=== PATIENT | female | born 1965 | race Caucasian/White ===

== ENCOUNTER → 2017-05-26 | Outpatient (CLI) | payer OTHER ==
--- NOTE | 2017-05-26 09:03 | USB ---
Reason for exam: clinical finding. History: Patient has history of high-risk lesion on a previous biopsy at age 49 and is nulliparous. Family history of breast cancer in aunt and breast cancer in mother at age 50. High risk MG pre op needle loc RT of the right breast, August 12, 2015. MG discontinued stereo core RT of the right breast, August 05, 2015. Benign left US cyst aspiration of the left breast, July 31, 2008. Benign left US cyst aspiration of the left breast, June 21, 2007. Indicated problem(s): lump or thickening in the right breast. Physical Findings: Nurse Summary: P right breast lump increased x 2 months (nurse mm). US Breast RT Right breast ultrasound includes all four quadrants, the retroareolar region and axilla. Finding demonstrates a 0.2 x 0.6 x 0.2cm oval, cystic cluster at 10 o'clock and a 0.7 x 0.9 x 0.2cm oval node at palpable at 10 o'clock, probable lymph node. These results were verbally communicated with the patient and result sheet given to the patient on 05/26/17. ASSESSMENT: Probably benign, BI-RAD 3 RECOMMENDATION: Follow-up diagnostic mammogram of both breasts in 2 months. Ultrasound of the right breast in 2 months. Back on schedule for June 2017. Manage patient on a clinical basis.
== END | disposition home or self-care (01) ==
LOC: RADUSWWP 07:57
PROVIDERS: ATTEND Family Medicine
DX: N63 Unspecified lump in breast (principal)

== ENCOUNTER → 2017-05-30 | Outpatient (CLI) | payer OTHER ==
--- NOTE | 2017-05-30 14:30 | CT ---
CT CHEST FOR PULMONARY EMBOLISM. EXAMINATION TYPE: CT angio chest DATE OF EXAM: 05/30/2017 INDICATION: Strong family history of CT DLP: 310.6 mGycm, Automated exposure control for dose reduction was used. CONTRAST: Patient injected with 100 mL of Omnipaque 300. COMPARISON: NONE TECHNIQUE: CT of the chest is performed on a spiral scan at 2 mm thick sections. Study is performed with intravenous contrast timed for evaluation for pulmonary embolism. This will limit additional po rtions of the evaluation. 3-D MIP images reconstructed by the technologist are reviewed on the compu ter in the coronal and sagittal planes. Pre and postcontrast imaging is performed. Three-D reconstruc katlyn images performed separately by the technologist on the [employer] computer are reviewed. FINDINGS: No persistent filling defects are evident to suggest an acute pulmonary embolism. No mediastinal or hilar adenopathy enlarged by CT criteria is evident. The ascending aorta diameter at the level of the main pulmonary artery is 2.6 cm. The main pulmonary artery diameter at the bifur cation is 2.3 cm. Lung windows are clear. Limited CT section through the upper abdomen are unremarkable. IMPRESSIONS: 1. Normal pre and postcontrast CT chest 2. No thoracic aortic aneurysm.
== END | disposition home or self-care (01) ==
LOC: RADCTMAIN 13:09
PROVIDERS: ATTEND Family Medicine
DX: Z09 Encounter for follow-up examination after completed treatment for conditions other than malignant neoplasm (principal); Z82.49 Family history of ischemic heart disease and other diseases of the circulatory system
CPT/HCPCS: 71275; Q9967

== ENCOUNTER → 2017-07-27 | Outpatient (CLI) | payer OTHER ==
--- NOTE | 2017-07-28 08:52 | MM ---
Reason for exam: additional evaluation requested from prior study. Last mammogram was performed 1 year and 1 month ago. History: Patient has history of high-risk lesion on a previous biopsy at age 49 and is nulliparous. Family history of breast cancer in paternal aunt at age 60 and breast cancer in mother at age 50. High risk MG pre op needle loc RT of the right breast, August 12, 2015. MG discontinued stereo core RT of the right breast, August 05, 2015. Benign left US cyst aspiration of the left breast, July 31, 2008. Benign left US cyst aspiration of the left breast, June 21, 2007. Physical Findings: Nurse did not find any significant physical abnormalities on exam. MG Diagnostic Mammo w CAD ARIANA Bilateral CC and MLO view(s) were taken. Prior study comparison: July 09, 2016, bilateral MG screening mammo w CAD. February 03, 2016, right breast MG 3d diag mammo w/cad RT. February 03, 2016, right breast US breast limited RT. The breast tissue is extremely dense which could obscure a lesion on mammography. No suspicious abnormality. These results were verbally communicated with the patient and result sheet given to the patient on 07/27/17. ASSESSMENT: Negative, BI-RAD 1 RECOMMENDATION: Routine screening mammogram of both breasts in 1 year.
--- NOTE | 2017-07-28 08:54 | USB ---
Reason for exam: follow-up at short interval from prior study. History: Patient has history of high-risk lesion on a previous biopsy at age 49 and is nulliparous. Family history of breast cancer in paternal aunt at age 60 and breast cancer in mother at age 50. High risk MG pre op needle loc RT of the right breast, August 12, 2015. MG discontinued stereo core RT of the right breast, August 05, 2015. Benign left US cyst aspiration of the left breast, July 31, 2008. Benign left US cyst aspiration of the left breast, June 21, 2007. US Breast RT Right breast ultrasound includes all four quadrants, the retroareolar region and axilla. Finding demonstrates a 0.7 x 0.2 x 0.6cm oval, solid node at 10 o'clock, benign lymph node and a 0.4 x 0.2 x 0.5cm oval cluster too small to characterize at 10 o'clock, previously 0.4 x 0.2 x 0.6cm. These results were verbally communicated with the patient and result sheet given to the patient on 07/27/17. ASSESSMENT: Probably benign, BI-RAD 3 RECOMMENDATION: Ultrasound of the right breast in 6 months.
== END | disposition home or self-care (01) ==
LOC: RADMAMWWP 08:50
PROVIDERS: ATTEND Family Medicine
DX: N63 Unspecified lump in breast (principal); N64.9 Disorder of breast, unspecified
CPT/HCPCS: 76641; G0204

== ENCOUNTER → 2017-08-15 | Outpatient (CLI) | payer OTHER ==
--- NOTE | 2017-08-15 21:06 | MR ---
EXAMINATION TYPE: MR cervical spine wo con DATE OF EXAM: 08/15/2017 COMPARISON: NONE HISTORY: 51-year-old female with cervicalgia and neck pain TECHNIQUE: Multiplanar, multisequence images of the cervical spine were acquired. Findings: The craniocervical junction abnormality, predental space widening, or prevertebral soft tissue swelli ng. Variable [id number] disc desiccation particularly at C5-C6 and C6/C7 where there is disc space narrowing and disc osteophyte complex formation. Additional endplate Schmorl's nodes at these levels with Modic type I endplate change. Mild scattered facet and uncovertebral joint degenerative change. No suspicious bone marrow replacement. Alignment is maintained. At C2-C3, mild facet arthropathy without canal or foraminal stenosis. At C3-C4, mild facet arthropathy without significant canal or foraminal stenosis. At C4-C5, mild facet arthropathy without significant canal or foraminal stenosis. At C5-C6, there is mild disc osteophyte complex and mild facet and uncovertebral joint arthropathy. C hanges result in mild narrowing of the spinal canal with abutment of the ventral cord but no ar co rd flattening. Mild right-sided neural foraminal stenosis. At C6-C7, there is disc osteophyte complex with contiguous uncovertebral joint degenerative change. A dditional facet degenerative change. Changes mildly narrow the neuroforamina because moderate spinal canal stenosis with prominent abutment and flattening of the ventral cord but no ar cord compressi on. At C7-T1, there is facet degenerative change causing mild bilateral neuroforaminal narrowing. No spin al canal stenosis. No T2-weighted cord signal abnormality. No prevertebral or paravertebral soft tissue abnormality see n. IMPRESSION: 1. Moderate disc/endplate degenerative changes particularly at C5-C6 and C6/C7 where edematous Modic type I endplate change is also present. 2. Additional scattered facet and uncovertebral joint arthropathy. This results in mild neuroforamina l stenosis on the right at C5-C6 and on both sides at C6-C7 and C7-T1. 3. Prominent disc osteophyte complex at C6-C7 causes moderate spinal canal stenosis with abutment and flattening of the ventral cord. No ar cord compression or myelopathic cord signal change.
== END | disposition home or self-care (01) ==
LOC: RADMRIMAIN 17:24
PROVIDERS: ATTEND Family Medicine
DX: M48.02 Spinal stenosis, cervical region (principal); M99.71 Connective tissue and disc stenosis of intervertebral foramina of cervical region; M47.812 Spondylosis without myelopathy or radiculopathy, cervical region; M25.78 Osteophyte, vertebrae; M46.82 Other specified inflammatory spondylopathies, cervical region
CPT/HCPCS: 72141

== ENCOUNTER → 2017-08-30 | Outpatient (CLI) | payer OTHER ==
--- NOTE | 2017-08-31 07:31 | WWHP ---
[facility] - HISTORY AND PHYSICAL DATE OF SERVICE: 08/30/2017 CHIEF COMPLAINT: The patient is here for her routine gynecologic exam. HPI: This is a 51-year-old G0 with an LMP of 06/30/2017. The patient states she has never been sexually active. She states her periods have become more irregular about every 2 to 3 months. They are typically lasting anywhere between 2 to 6 days. She does have occasional hot flashes which are not very severe. She states she has noticed a pelvic pressure greater on the right side during the last 2 to 3 weeks which she notices most of the time. She states it seems to start on the right side and goes across the pelvic area. She does believe that drinking soda pop does seem to help, but she does not want to drink lots of pop. She describes it as a dull ache and can be as much as 4 to 5/10 on the pain scale. She is otherwise without gynecologic complaints. PAST MEDICAL HISTORY: Seizure disorder since childhood, but she has been seizure-free since about 1983, chronic neck problems. MEDICATIONS: 1. Phenobarbital 65 mg b.i.d. 2. Vitamin D3 supplement daily. 3. Glucosamine supplement daily. chronic neck problems. ALLERGIES: No known drug allergies. PAST SURGICAL HISTORY: Right breast biopsy in 2014, which was benign. 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 She has never been sexually active and has no history of STDs. SOCIAL HISTORY: She denies tobacco, alcohol, and drug use. 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 FAMILY HISTORY: Mother had breast cancer and father had prostate cancer. Both parents have hypertension and a paternal grandmother had ovarian cancer. REVIEW OF SYSTEMS: Weight has been stable. She denies respiratory, cardiac or GI problems. PHYSICAL EXAM: Blood pressure 108/69, height 5 feet 7 inches, weight 134 pounds, temperature 97.9, pulse 48. This is a well-developed, well-nourished, white female, who is alert and oriented x3, in no acute distress. HEENT is within normal limits. NECK: Supple without mass or thyromegaly. CHEST AND LUNGS: Clear to auscultation. HEART: Regular rate and rhythm. BREASTS: The right breast is consistent with a previous breast biopsy at approximately the 10 o'clock position. At the very lateral aspect of the breast at the 10 o'clock position, there is a palpable pea-size lump which has been followed conservatively. This is smooth and mobile, measuring approximately 4 to 5 mm in size. This is nontender. There are no other palpable breast masses or tenderness. Axillary exam is negative for adenopathy. Back negative for CVA tenderness. ABDOMEN: Soft, nontender, without palpable masses. PELVIC EXAM: External genitalia appears normal. Cervix and vagina appear normal. There is no unusual discharge. There is no cervical motion tenderness. The uterus is mid-position, nongravid size and nontender. There are no palpable adnexal masses or tenderness. Rectovaginal exam is negative for mass or tenderness and is negative for occult blood. EXTREMITIES: Nontender. IMPRESSION: 1. A 51-year-old female with normal gynecologic exam. 2. A 3-week history of right pelvic pressure without any significant physical findings on exam. PLAN: 1. Pap smear was deferred since she had a normal 1 last year. 2. Self-breast examination was discussed. 3. Mammogram and right breast ultrasound were performed on 07/27/2017. The findings were benign, but a right breast ultrasound was recommended in 6 months. An order slip was given to the patient for this. 4. The patient will be scheduled for a pelvic ultrasound to further evaluate the pelvic pressure and discomfort that she has been experiencing. 5. I have recommended screening colonoscopy and she states this is already scheduled for later this month and Dr. Pan will be doing it. 6. Osteoporosis prevention was discussed. 7. She will return in 1 year. MMODL / IJN: [id number] /
== END | disposition home or self-care (01) ==
LOC: WWCWWP 09:28
PROVIDERS: ATTEND Obstetrics & Gynecology
DX: Z01.419 Encounter for gynecological examination (general) (routine) without abnormal findings (principal)

== ENCOUNTER → 2017-08-31 | Outpatient (CLI) | payer OTHER ==
--- NOTE | 2017-08-31 09:18 | US ---
EXAMINATION TYPE: US pelvic complete DATE OF EXAM: 08/31/2017 COMPARISON: NONE CLINICAL HISTORY: R10.2 PELVIC PAIN. Pt states right adnexal fullness TECHNIQUE: Transvaginal (TV) and Transabdominal (TA), due to pt time restraints, pt did not want to wait to fill bladder, TV supplemented Date of LMP: Jun 2017 EXAM MEASUREMENTS: Uterus: 7.0 x 3.4 x 4.1 cm Endometrial Stripe: 0.4 cm Right Ovary: 2.6 x 1.7 x 1.9 cm Left Ovary: 3.1 x 3.1 x 2.1 cm 1. Uterus: Anteverted Heterogeneous with numerous hyperechoic foci throughout the junctional zone 2. Endometrium: wnl 3. Right Ovary: wnl 4. Left Ovary: Dominant follicle= 1.5 x 1.2 x 1.6 cm 5. Bilateral Adnexa: wnl 6. Posterior cul-de-sac: Many peristalsing bowel loops visualized IMPRESSION: 1. Right ovary is unremarkable. 2. Heterogenous myometrium which could represent adenomyosis as there are numerous hyperechoic foci n ear the junctional zone. Enhanced pelvic MR could be performed for further evaluation. 3. Dominant left ovarian follicle.
== END | disposition home or self-care (01) ==
LOC: RADUSWWP 08:18
PROVIDERS: ATTEND Obstetrics & Gynecology
DX: R10.2 Pelvic and perineal pain (principal)
CPT/HCPCS: 76830; 76856

== ENCOUNTER 2017-12-21 09:12 | Emergency (ER) | payer OTHER ==
--- NOTE | 2017-12-21 09:52 | ED ---
General Adult HPI - General Chief complaint: Head Injury Stated complaint: [facility] - HEAD INJURY Time Seen by Provider: 12/21/17 09:46 Source: patient, RN notes reviewed Mode of arrival: ambulatory Limitations: no limitations - History of Present Illness Initial comments: 52-year-old female presents to the emergency department with a chief complaint of head injury. 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 She states she has a little bit of a goose egg. Her work made her come in to be evaluated. She denies any headache any loss of consciousness. She states at the time of the incident she had a low nausea but there is no vomiting. She denies any high fevers any neck pain or any other injury from the incident. She is otherwise she feels fine. She's been acting normally. Patient has no other complaints. Patient denies any recent fever, chills, shortness of breath, chest pain, back pain, abdominal pain, vomiting, numbness or tingling, dysuria or hematuria, constipation or diarrhea, headaches, visual changes, or any other current symptoms. - Related Data Home Medications Medication Instructions Recorded Confirmed PHENobarbital [Phenobarbital] 64.8 mg PO BID 08/11/15 12/21/17 Cholecalciferol [Vitamin D3] 1,000 unit PO DAILY 09/21/17 12/21/17 Glucosam/Robbi-Msm1/C/Abelino/Bosw 1 tab PO DAILY 09/21/17 12/21/17 [Glucosamine-Chondroitin Tablet] Allergies Allergy/AdvReac Type Severity Reaction Status Date / Time No Known Allergies Allergy Verified 12/21/17 09:54 Review of Systems ROS Statement: Those systems with pertinent positive or pertinent negative responses have been documented in the HPI. ROS Other: All systems not noted in ROS Statement are negative. Past Medical History Past Medical History: Seizure Disorder Additional Past Medical History / Comment(s): "SLEEP SEIZURES" LAST SEIZURE 1983, History of Any Multi-Drug Resistant Organisms: None Reported Past Surgical History: Breast Surgery Additional Past Surgical History / Comment(s): RT BREAST BX BENIGN Past Anesthesia/Blood Transfusion Reactions: No Reported Reaction Additional Past Anesthesia/Blood Transfusion Reaction / Comment(s): NEVER HAS HAD GENERAL ANESTHESIA Past Psychological History: No Psychological Hx Reported Smoking Status: Never smoker Past Alcohol Use History: None Reported Past Drug Use History: None Reported - Past Family History Mother Family Medical History: Cancer Additional Family Medical History / Comment(s): BREAST AT AGE 50 LIVING AT 85 Father Family Medical History: Cancer Additional Family Medical History / Comment(s): PROSTATE. FATHER'S MOTHER AND SISTER BREAST CA AND OVARIAN CA. General Exam - General Exam Comments Initial Comments: General: The patient is awake and alert, in no distress, and does not appear acutely ill. Head: Patient does appear to have an occipital hematoma Eye: Pupils are equal, round and reactive to light, extra-ocular movements are intact; there is normal conjunctiva bilaterally. No signs of icterus. Ears, nose, mouth and throat: There are moist mucous membranes and no oral lesions. Neck: The neck is supple, there is no tenderness. Cardiovascular: There is a regular rate and rhythm. No murmur, rub or gallop is appreciated. Respiratory: Lungs are clear to auscultation, respirations are non-labored, breath sounds are equal. No wheezes, stridor, rales, or rhonchi. Back: There is no tenderness to palpation in the midline. There is no obvious deformity. No rashes noted. Musculoskeletal: Normal ROM, no tenderness, There is no pedal edema. There is no calf tenderness or swelling. Sensation intact. Pulses equal bilaterally 2+. Neurological: CN II-XII intact, There are no obvious motor or sensory deficits. Coordination appears grossly intact. Speech is normal. Skin: Skin is warm and dry and no rashes or lesions are noted. Psychiatric: Cooperative, appropriate mood & affect, normal judgment. Limitations: no limitations Course Vital Signs 12/21/17 09:43 Temperature 97.8 F Pulse Rate 60 Respiratory 20 Rate Blood Pressure 125/67 O2 Sat by Pulse 99 Oximetry Medical Decision Making - Medical Decision Making 52-year-old female presents to the emergency 5 chief complaint of a occipital hematoma. This time CAT scan is negative per a verbal report. Patient is asymptomatic. This time we discussed close follow-up we discussed return parameters we discussed what to watch while questions. Patient stated that she understood and she is in agreement with this plan. All questions have been answered. This time she will be discharged. - Radiology Data Radiology results: image reviewed Interpreted by me: Verbal report was given which is negative. Disposition Clinical Impression: Hematoma of occipital surface of head Disposition: HOME SELF-CARE Condition: Stable Instructions: Head Injury (ED) Additional Instructions: Please use medication as discussed. Please follow up with family doctor if symptoms have not improved over the next two days. Please return to the emergency room if your symptoms increase or worsen or for any other concerns. Referrals: Kevin Waggoner MD [Primary Care Provider] - 1-2 days Time of Disposition: 12:07
[2017-12-21 12:23] VITALS: BP 102/61; PULSE 57; RESP 16; TEMP 97.9
--- NOTE | 2017-12-21 12:54 | CT ---
EXAMINATION TYPE: CT brain wo con DATE OF EXAM: 12/21/2017 COMPARISON: NONE HISTORY: Head Injury with headache. CT DLP: 1054.2 mGycm. Automated Exposure Control for Dose Reduction was Utilized. TECHNIQUE: CT scan of the head is performed without contrast. FINDINGS: There is no acute intracranial hemorrhage, mass effect, or midline shift identified. The ventricles and sulci are within normal limits in size. Mcdermott-white matter differentiation is preserve d. The globes are intact and the visualized sinuses are clear. The calvarium is intact. IMPRESSION: No acute intracranial hemorrhage, mass effect, or midline shift is seen.
== END 2017-12-21 12:39 | disposition home or self-care (01) ==
LOC: EC 09:12
DX: S00.03XA Contusion of scalp, initial encounter (principal); G40.909 Epilepsy, unspecified, not intractable, without status epilepticus; Z79.899 Other long term (current) drug therapy; W22.8XXA Striking against or struck by other objects, initial encounter; Y99.0 Civilian activity done for income or pay; Y93.89 Activity, other specified; Y92.811 Bus as the place of occurrence of the external cause
CPT/HCPCS: 70450; 99283

== ENCOUNTER → 2018-02-07 | Outpatient (CLI) | payer OTHER ==
--- NOTE | 2018-02-07 10:35 | USB ---
Reason for exam: follow-up at short interval from prior study. History: Patient has history of high-risk lesion on a previous biopsy at age 49 and is nulliparous. Family history of breast cancer in paternal aunt at age 60 and breast cancer in mother at age 50. High risk MG pre op needle loc RT of the right breast, August 12, 2015. MG discontinued stereo core RT of the right breast, August 05, 2015. Benign left US cyst aspiration of the left breast, July 31, 2008. Benign left US cyst aspiration of the left breast, June 21, 2007. Physical Findings: Nurse Summary: axilla nodule 1cm moves (nurse dw). US Breast RT Right breast ultrasound includes all four quadrants, the retroareolar region and axilla. Finding demonstrates a 0.7 x 0.6 x 0.2cm oval, vascular, stable lesion at 10 o'clock. These results were verbally communicated with the patient and result sheet given to the patient on 02/07/18. ASSESSMENT: Benign, BI-RAD 2 RECOMMENDATION: Routine screening mammogram of both breasts in 6 months. Back on schedule.
== END | disposition home or self-care (01) ==
LOC: RADUSWWP 09:02
PROVIDERS: ATTEND Obstetrics & Gynecology
DX: N63.10 Unspecified lump in the right breast, unspecified quadrant (principal)

== ENCOUNTER → 2018-09-19 | Outpatient (CLI) | payer OTHER ==
[2018-09-19 11:32] VITALS: BP 109/72; PULSE 53; TEMP 97.8; BMI 20.2
--- NOTE | 2018-09-19 12:33 | P.HPOB ---
History of Present Illness H&P Date: 09/19/18 Chief Complaint: The patient is here for her routine gynecologic exam. This is a 52-year-old G0 with an LMP of 01/11/2018. The patient states her menstrual periods have been spacing out even more. Last year they were typically every one to 3 months and this year she has gone 8 months without a menstrual period. She has intermittent hot flashes during the past year. She is complaining of lower abdominal and pelvic cramping and 18 during the past 4 months. She notices this on both sides and rates hit at about a 5 out of 10. She denies any fever. Review of Systems The patient's weight has been stable over the last year. She denies respiratory , cardiac, or G.I. problems. Past Medical History Past Medical History: Seizure Disorder Additional Past Medical History / Comment(s): "SLEEP SEIZURES" LAST SEIZURE 1983. 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 She has not been sexually active. 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 - Past Family History Mother Family Medical History: AFIB, Cancer (Breast) Additional Family Medical History / Comment(s): BREAST AT AGE 50 LIVING AT 85. Maternal aunt also had breast cancer. Father Family Medical History: Cancer (Prostate), Renal Disease Additional Family Medical History / Comment(s): PROSTATE. Paternal grandmother had OVARIAN CA. Medications and Allergies Home Medications Medication Instructions Recorded Confirmed Type PHENobarbital [Phenobarbital] 64.8 mg PO BID 08/11/15 09/19/18 History Cholecalciferol [Vitamin D3] 1,000 unit PO DAILY 09/21/17 12/21/17 History Glucosam/Robbi-Msm1/C/Abelino/Bosw 1 tab PO DAILY 09/21/17 09/19/18 History [Glucosamine-Chondroitin Tablet] Multivitamin [Multivitamins Adult PO DAILY 09/19/18 History Gummies] Allergies Allergy/AdvReac Type Severity Reaction Status Date / Time No Known Allergies Allergy Verified 09/19/18 11:28 Exam Vital Signs Temp Pulse BP 09/19/18 11:28 97.8 F 53 L 109/72 Intake and Output 09/18/18 09/19/18 09/19/18 22:59 06:59 14:59 Other: Weight 60.328 kg Height 5'8", weight 133 pounds, BMI 20.2. This is a well-developed well-nourished white female who is alert and oriented times 3 in no acute distress. HEENT: Within normal limits. NECK: Supple without mass or thyromegaly. CHEST AND LUNGS: Clear to auscultation. HEART: Regular rate and rhythm. BREASTS: Are without mass or discharge. AXILLARY EXAM: Negative for adenopathy. BACK: Negative for CVA tenderness. ABDOMEN: Soft, minimal bilateral lower quadrant tenderness without rebound. There are 2+ bowel sounds without distention. There are no palpable masses. PELVIC EXAM: Normal external genitalia. Cervix and vagina appear normal. There is no unusual discharge. There is no cervical motion tenderness. There is no evidence of prolapse. The uterus is midposition, nongravid size and nontender. There are no palpable adnexal masses. There is minimal bilateral pelvic tenderness without palpable masses. The uterus is nontender.. RECTAL EXAM: rectovaginal exam is negative for mass or tenderness and is negative for occult blood. EXTREMITIES: Nontender. IMPRESSION: 1. 52-year-old perimenopausal female with oligomenorrhea and vasomotor symptoms. 2. Four-month history of lower abdominal and pelvic pain described as crampy and achy with mild lower abdominal and pelvic tenderness. Differential diagnosis will include intestinal and bowel cramping and possible ovarian mass. 3. Family history of ovarian cancer in her grandmother and family history of breast cancer in her mother and aunt. PLAN: 1. Pap smear was performed. 2. Self breast awareness was discussed with the patient. 3. Screening mammogram was recently done on 07/28/2018 and was benign. This will be repeated in one year. 4. Pelvic ultrasound will be scheduled. 5. Osteoporosis prevention was discussed. 6. She will return one year.
== END | disposition home or self-care (01) ==
LOC: WWCWWP 11:05
PROVIDERS: ATTEND Obstetrics & Gynecology
DX: Z53.9 Procedure and treatment not carried out, unspecified reason (principal)

== ENCOUNTER → 2018-09-25 | Outpatient (CLI) | payer OTHER ==
--- NOTE | 2018-09-26 07:27 | US ---
EXAMINATION TYPE: US pelvis complete transvag DATE OF EXAM: 09/25/2018 COMPARISON: NONE CLINICAL HISTORY: R10.2 Pelvic pain,R14.0 Abdominal bloating. TECHNIQUE: TA/TV. Transabdominal sonographic images of the pelvis were acquired. Transvaginal sono graphic images were medically necessary to better assess the following anatomy: uterus and ovary Date of LMP: Dec 2017 EXAM MEASUREMENTS: Uterus: 6.5 x 3.6 x 3.3 cm Endometrial Stripe: 0.4 cm Right Ovary: 2.0 x 1.5 x 1.2 cm Left Ovary: not seen 1. Uterus: Anteverted slightly heterogeneous with mild fluid seen within LEORA 2. Endometrium: wnl 3. Right Ovary: wnl, follicle under 1cm seen 4. Left Ovary: not seen due to bowel gas 5. Bilateral Adnexa: wnl 6. Posterior cul-de-sac: wnl IMPRESSION: 1. Small memory ovarian follicles less than 1 cm. No rate complex ovarian cysts. The left ovary was n onvisualized due to overlying bowel. 2. Endometrial thickness is within normal limits for the patient's age, however a small amount of flu id is seen within the lower uterine segment. Correlate with any vaginal bleeding.
--- NOTE | 2018-09-26 17:07 | P.PN ---
Progress Note - Text Progress Note Date: 09/26/18 OUTPATIENT FOLLOW-UP NOTE TEST(S)/RESULTS: pelvic ultrasound done on 09/25/2018 shows no evidence of an ovarian mass. A small amount of fluid was noted in the lower uterine segment. The endometrial thickness was within normal limits. METHOD OF NOTIFICATION: the patient was notified by phone. PATIENT COMMENTS: the patient's LMP was in December of this year. She is considered perimenopausal. DIAGNOSIS: small amount of fluid in the lower uterine segment. This is probably consistent with being perimenopausal. No evidence of an ovarian mass. DISCUSSION: PLAN: repeat pelvic ultrasound in 6 months. The order slip will be sent to the patient.
== END | disposition home or self-care (01) ==
LOC: RADUSWWP 15:48
PROVIDERS: ATTEND Obstetrics & Gynecology
DX: N85.8 Other specified noninflammatory disorders of uterus (principal); R10.2 Pelvic and perineal pain; R14.0 Abdominal distension (gaseous)
CPT/HCPCS: 76830; 76856

== ENCOUNTER → 2019-03-08 | Outpatient (CLI) | payer OTHER ==
--- NOTE | 2019-03-08 10:25 | US ---
EXAMINATION TYPE: US pelvis complete transvag DATE OF EXAM: 03/08/2019 COMPARISON: 09/25/2018 CLINICAL HISTORY: R93.8 Abnormal findings on diagnostic imaging of. Follow up fluid seen in endometri al cavity. No spotting. Patient states having pelvic pressure. TECHNIQUE: Transvaginal (TV) and Transabdominal (TA) . Transabdominal sonographic images of the pel vis were acquired. Transvaginal sonographic images were medically necessary to better assess the fol lowing anatomy: Ovaries and Endometrium Date of LMP: December 2017, G0 EXAM MEASUREMENTS: Uterus: 7.1 x 3.2 x 3.3 cm Endometrial Stripe: 1.0 cm Right Ovary: 2.1 x 1.3 x 1.2 cm Left Ovary: 2.6 x 1.5 x 1.0 cm 1. Uterus: Anteverted Appears heterogenous, no prominent masses or lesions visualized 2. Endometrium: Borders appear difficult to visualize, possibly thickened 3. Right Ovary: wnl 4. Left Ovary: cystic appearing lesion - 1.2 x 0.7 x 0.7 cm 5. Bilateral Adnexa: free fluid seen adjacent to left ovary 6. Posterior cul-de-sac: no free fluid Incidental finding- Debris visualized in bladder IMPRESSION: 1. Uterus is slightly heterogeneous which is a nonspecific finding. Endometrial borders are difficult to visualize and the endometrium measures approximately 1 cm which may be thickened. Correlate for e ndometrial pathology. 2. There is a left ovarian simple cyst measuring 1.2 cm. 3. There is a small amount of free fluid in the left adnexa. 4. Incidental note is made of debris within the bladder. Correlate with urinalysis for possible urina ry tract infection, otherwise consider mucosal lesion
== END | disposition home or self-care (01) ==
LOC: RADUSWWP 09:13
PROVIDERS: ATTEND Obstetrics & Gynecology
DX: N83.202 Unspecified ovarian cyst, left side (principal)
CPT/HCPCS: 76830; 76856

== ENCOUNTER → 2019-03-21 | Day surgery (SDC) | payer OTHER ==
[2019-03-21 12:58] VITALS: BP 112/74; PULSE 51; RESP 16; TEMP 97.8; BMI 19.8
--- NOTE | 2019-03-21 14:20 | P.PCN ---
Date of Procedure: 03/21/19 Preoperative Diagnosis: Postmenopausal endometrial thickening Postoperative Diagnosis: Postmenopausal endometrial thickening Procedure(s) Performed: Endometrial biopsy (attempted) Anesthesia: none Surgeon: Moses Driscoll Estimated Blood Loss (ml): 0 Pathology: none sent Condition: stable Disposition: same day Indications for Procedure: This was a 53-year-old G0 with an LMP of December 2017. The patient had a pelvic ultrasound approximately 6 months ago because of pelvic discomfort. Small individual fluid was noted at that time. Pelvic ultrasound was repeated on 03/08/2019 which showed a slightly heterogeneous uterus with ill-defined endometrial borders with the endometrium measuring approximately 1 cm which is felt to be possibly thickened. Operative Findings: The was noncredit size. There were no palpable adnexal masses or tenderness. The cervix appears nulliparous and was stenotic and the endometrial biopsy instrument could not pass through the cervix. Description of Procedure: The endometrial biopsy procedure was described to the patient. All of her questions were answered. Cytotec was inserted intravaginally approximately 4 hours prior to the procedure by the patient. The patient was placed in the li thotomy position. Bimanual examination was performed. The uterus is mid- positioned and is gravid size. The speculum was inserted and the cervix and vagina were prepped with betadine solution. The anterior lip of the cervix was grasped with an Allys Clamp. The 3mm endometrial biopsy curette placed within the cervix but could not penetrate beyond 2 cm because of cervical stenosis. The Allys clamp was placed on the posterior cervix to see if this would allow the biopsy instrument to penetrate. Several attempts were made but were unsuccessful. The decision was made to abort the procedure. The patient tolerated the procedure well. There were no complications. The post procedure vitals are as follows: blood pressure 118/77. pulse 52. Post procedure instructions were given to the patient. We discussed the option of repeating the pelvic ultrasound in 6 months or referral for endometrial sampling and possible D&C. The patient is requesting a referral for possible D&C. A referral will be made.
--- NOTE | 2019-03-21 14:25 | P.PN ---
Progress Note - Text Progress Note Date: 03/21/19 OUTPATIENT FOLLOW-UP NOTE TEST(S)/RESULTS: urine testing from 03/14/2019 included a urine culture which was negative. METHOD OF NOTIFICATION: patient was notified by phone. PATIENT COMMENTS: DIAGNOSIS: negative urine culture. DISCUSSION: also, see today's endometrial biopsy attempt procedure note. PLAN: the patient will be referred for endometrial sampling, possible D&C.
== END ==
LOC: WWCWWP 11:32
PROVIDERS: ATTEND Obstetrics & Gynecology
DX: Z53.9 Procedure and treatment not carried out, unspecified reason (principal)

== ENCOUNTER → 2019-10-18 | Outpatient (CLI) | payer OTHER ==
--- NOTE | 2019-10-22 10:33 | MM ---
Reason for exam: screening (asymptomatic). Last mammogram was performed 1 year and 3 months ago. History: Patient has history of high-risk lesion on a previous biopsy at age 49 and is nulliparous. Family history of breast cancer in paternal aunt at age 60 and breast cancer in mother at age 50. High risk MG pre op needle loc RT of the right breast, August 12, 2015. MG discontinued stereo core RT of the right breast, August 05, 2015. Benign left US cyst aspiration of the left breast, July 31, 2008. Benign left US cyst aspiration of the left breast, June 21, 2007. Physical Findings: A clinical breast exam by your physician is recommended on an annual basis and results should be correlated with mammographic findings. MG 3D Screening Mammo W/Cad Bilateral CC and MLO view(s) were taken. Prior study comparison: July 28, 2018, bilateral MG screening mammo w CAD. July 27, 2017, bilateral MG diagnostic mammo w CAD [facility]ANA. The breast tissue is extremely dense which could obscure a lesion on mammography. No suspicious abnormality. Post surgical change on the right. Left biopsy marker noted. ASSESSMENT: Benign, BI-RAD 2 RECOMMENDATION: Routine screening mammogram of both breasts in 1 year.
== END | disposition home or self-care (01) ==
LOC: RADMAMWWP 12:59
PROVIDERS: ATTEND Obstetrics & Gynecology
DX: Z12.31 Encounter for screening mammogram for malignant neoplasm of breast (principal); Z80.3 Family history of malignant neoplasm of breast
CPT/HCPCS: 77063; 77067

== ENCOUNTER → 2020-03-20 | Outpatient (CLI) | payer OTHER ==
--- NOTE | 2020-03-20 11:28 | US ---
EXAMINATION TYPE: US transvaginal DATE OF EXAM: 03/20/2020 COMPARISON: Pelvic ultrasound March 08, 2019 CLINICAL HISTORY: R10.2 pelvic pain. TECHNIQUE: Transvaginal (TV). Date of LMP: 2017 EXAM MEASUREMENTS: Uterus: 5.8 x 2.6 x 3.3 cm Endometrial Stripe: 0.3 cm Right Ovary: 1.6 x 1.1 x 0.9 cm Left Ovary: 2.0 x 1.1 x 1.2 cm 1. Uterus: Anteverted wnl 2. Endometrium: wnl 3. Right Ovary: wnl 4. Left Ovary: Scattered follicles 5. Bilateral Adnexa: wnl 6. Posterior cul-de-sac: wnl IMPRESSION: Unremarkable transvaginal pelvic ultrasound. No suspicious adnexal masses noted on images saved.
== END | disposition home or self-care (01) ==
LOC: RADUSWWP 10:39
PROVIDERS: ATTEND Family Medicine
DX: R10.2 Pelvic and perineal pain (principal)
CPT/HCPCS: 76830

== ENCOUNTER → 2020-06-14 | Outpatient (CLI) | payer OTHER ==
--- NOTE | 2020-06-15 12:39 | CT ---
EXAMINATION TYPE: CT sinus wo con DATE OF EXAM: 06/14/2020 COMPARISON: NONE HISTORY: Chronic sinusitis per order. Headaches, nasal drainage for patient. CT DLP: 693 mGycm. Automated Exposure Control for Dose Reduction was Utilized. TECHNIQUE: CT scan of the sinuses is performed without contrast, axial images are obtained, coronal r eformatted images are also reviewed. FINDINGS: Minimal mucosal thickening in the inferior aspect right maxillary sinus. Mild to minimal mu cosal thickening throughout the anterior ethmoid sinuses bilaterally. Remainder paranasal sinuses katherine ar without suspicious opacification or air-fluid levels. The ostiomeatal complex is patent bilateral ly on coronal image 17. Nasal septum deviated to left of midline. Visualized portion of mastoid air cells show no abnormal opacification. The globes are intact bilate rally. Visualized brain parenchyma unremarkable. IMPRESSION: No acute sinusitis currently. Mild chronic paranasal sinus disease noted.
== END | disposition home or self-care (01) ==
LOC: RADCTMAIN 07:01
PROVIDERS: ATTEND Otolaryngology
DX: J32.9 Chronic sinusitis, unspecified (principal)
CPT/HCPCS: 70486

== ENCOUNTER 2020-07-30 12:31 | Emergency (ER) | payer OTHER ==
--- NOTE | 2020-07-30 12:16 | CT ---
EXAMINATION TYPE: CT orbits wo con, CT sinus wo con DATE OF EXAM: 07/30/2020 COMPARISON: CT sinus 06/14/2020 HISTORY: Postprocedural sinus surgery, nosebleed and left eye pressure CT DLP: Included in sinus study (accession [id number]), 595 (accession [id number]) mGycm Automated exposure control for dose reduction was used. Helical imaging through the orbits and sinus wo contrast. FINDINGS: There is abnormal increased attenuation involving the left maxillary sinus, minimal air present withi n the left maxillary sinus, right maxillary sinus and ostiomeatal unit are patent. Left ostiomeatal u nit shows abnormal soft tissue which extends into the region of the middle turbinate, there is inflam matory change in the ethmoid air cells and left frontal sinus. Left ostiomeatal unit is not well-defi jahaira, small bone fragment may be present at this level. Nasal septal deviation towards the left is not ed. Orbits are intact. Orbits show symmetric appearance. There is no evident fracture. Globes are intact. IMPRESSION: FINDINGS MAY REPRESENT POSTOP INFLAMMATORY CHANGE, ASSOCIATED HEMORRHAGE additional findings above.
[2020-07-30 12:49] VITALS: BP 129/85; PULSE 73; RESP 18; TEMP 98.5
--- NOTE | 2020-07-30 13:58 | ED ---
Recheck HPI - General Chief Complaint: Recheck/Abnormal Lab/Rx Stated Complaint: abn CT Source: patient Mode of arrival: ambulatory Limitations: no limitations - History of Present Illness Initial Comments: Patient is a 54-year-old female presenting to the emergency department from [place]. Patient had a balloon sinus plasty on 07/18/2020 and has been having sinus pressure since then. She saw ENT in [place], Dr. Nascimento for the procedure. Since procedure she has not been blowing her nose secondary to precautions, she is having black colored blood clot come from her nose when she does blow slightly. She is not having any active bleeding. She states her PCP ordered another CT of the sinuses today and after she had a performed she was told to come down to the ER. She does not have another follow-up with her ENT until the , in 13 days. Patient denies any fever, chills, nausea, vomiting. She states she's been having increased sinus pressure, sinus headaches. She is no further complaints at this time. Upon arrival to the ER, her vital signs are stable. - Related Data Home Medications Medication Instructions Recorded Confirmed PHENobarbital [Phenobarbital] 64.8 mg PO BID 08/11/15 03/21/19 Cholecalciferol [Vitamin D3] 1,000 unit PO DAILY 09/21/17 03/21/19 Glucosam/Robbi-Msm1/C/Abelino/Bosw 1 tab PO DAILY 09/21/17 03/21/19 [Glucosamine-Chondroitin Tablet] Multivitamin [Multivitamins Adult PO DAILY 09/19/18 Gummies] Previous Rx's Medication Instructions Recorded Misoprostol [Cytotec] 200 mcg VAGINAL ONCE #2 tablet 03/13/19 methylPREDNISolone [Medrol Dose 4 mg PO DIRECTED #1 pack 07/30/20 Pack] Allergies Allergy/AdvReac Type Severity Reaction Status Date / Time No Known Allergies Allergy Verified 07/30/20 12:49 Review of Systems ROS Statement: Those systems with pertinent positive or pertinent negative responses have been documented in the HPI. ROS Other: All systems not noted in ROS Statement are negative. Past Medical History Past Medical History: Seizure Disorder Additional Past Medical History / Comment(s): "SLEEP SEIZURES" LAST SEIZURE 1983. 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 She has not been sexually active. History of Any Multi-Drug Resistant Organisms: None Reported Past Surgical History: Breast Surgery Additional Past Surgical History / Comment(s): RT BREAST BX BENIGN Past Anesthesia/Blood Transfusion Reactions: No Reported Reaction Additional Past Anesthesia/Blood Transfusion Reaction / Comment(s): NEVER HAS HAD GENERAL ANESTHESIA Past Psychological History: No Psychological Hx Reported Smoking Status: Never smoker Past Alcohol Use History: None Reported Past Drug Use History: None Reported - Past Family History Mother Family Medical History: AFIB, Cancer Additional Family Medical History / Comment(s): BREAST AT AGE 50 LIVING AT 85. Maternal aunt also had breast cancer. Father Family Medical History: Cancer, Renal Disease Additional Family Medical History / Comment(s): PROSTATE. Paternal grandmother had OVARIAN CA. General Exam - General Exam Comments Initial Comments: GENERAL: Patient is well-developed and well-nourished. Patient is nontoxic and in no acute distress. HEAD: Atraumatic, normocephalic. EYES: Pupils equal round and reactive to light, extraocular movements intact, sclera anicteric, conjunctiva are normal. Eyelids were unremarkable. ENT: TMs normal, nares patent, oropharynx clear without exudates. Moist mucous membranes. No active nasal bleeding. No visualized blood clots. NECK: Normal range of motion, supple without lymphadenopathy or JVD. LUNGS: Unlabored respirations. Breath sounds clear to auscultation bilaterally and eq ual. No wheezes rales or rhonchi. HEART: Regular rate and rhythm without murmurs, rubs or gallops. ABDOMEN: Soft, nontender, normoactive bowel sounds. No guarding, no rebound. No masses appreciated. : Deferred MUSCULOSKELETAL: Normal extremities with adequate strength and normal range of motion, no pitting or edema. No clubbing or cyanosis. NEUROLOGICAL: Patient is alert and oriented x 3. Motor and sensory are also intact. Cranial nerves II through XII grossly intact. Symmetrical smile. Normal speech, normal gait. PSYCH: Normal mood, normal affect. SKIN: Warm, Dry, normal turgor, no rashes or lesions noted. Limitations: no limitations Course Vital Signs 07/30/20 12:44 Temperature 98.5 F Pulse Rate 73 Respiratory 18 Rate Blood Pressure 129/85 O2 Sat by Pulse 100 Oximetry Medical Decision Making - Medical Decision Making Patient is a 54-year-old female here for sinus pressure and pain, was sent from CT. She had sinus procedure done by Dr. Duron in [place] approximately 2 weeks ago. Her vital signs are stable, her exam does not reveal any acute findings, no active nasal bleeding. CT of the sinuses and orbits revealed postoperative inflammatory changes, possible associated hemorrhage. I did contact her ENT, Dr. Nascimento, who stated she is stable for discharge. ENT will see her in the office in a few days. I did fax over her CT results to him as requested. He did recommend a steroid Dosepak for inflammatory changes. She may also continue with her already prescribed antibiotic. Patient is agreement with this plan of care, she stable for discharge. Return parameters were discussed with the patient she verbalized understanding. Case discussed with Dr. Lake. Disposition Clinical Impression: Sinus pressure Disposition: HOME SELF-CARE Condition: Stable Instructions (If sedation given, give patient instructions): Sinusitis (ED) Additional Instructions: Please return to the Emergency Department if symptoms worsen or any other concerns. Take steroid pack as prescribed. Follow-up with your ENT as discussed. Prescriptions: methylPREDNISolone [Medrol Dose Pack] 4 mg PO DIRECTED #1 pack Is patient prescribed a controlled substance at d/c from ED?: No Referrals: Kevin Waggoner MD [Primary Care Provider] - 1-2 days
== END 2020-07-30 14:25 | disposition home or self-care (01) ==
LOC: EC 12:31
DX: J34.89 Other specified disorders of nose and nasal sinuses (principal); G40.909 Epilepsy, unspecified, not intractable, without status epilepticus; Z79.899 Other long term (current) drug therapy
CPT/HCPCS: 70480; 70486; 99283

== ENCOUNTER 2020-08-30 17:28 | Emergency (ER) | payer OTHER ==
[2020-08-30 17:44] VITALS: TEMP 97.7
[2020-08-30] MEDS ORDERED: LIDOCAINE 1% INJ 10MG/ML (20 ML MDV) SQ STA (17:49)
[2020-08-30] MEDS ORDERED: CEPHALEXIN 500 MG CAP PO STA ×2 (17:50→19:21)
--- NOTE | 2020-08-30 18:06 | XR ---
EXAMINATION TYPE: XR hand complete LT DATE OF EXAM: 08/30/2020 COMPARISON: NONE HISTORY: Laceration to second finger TECHNIQUE: 3 views FINDINGS: Metacarpals are intact. I see no fracture nor dislocation. There is no sign of a foreign chelo dy. Joint spaces are normal. IMPRESSION: Negative exam. No fracture.
[2020-08-30] MEDS ORDERED: CEPHALEXIN 500MG STARTER PACK 4 CAP BTL PO STA (19:20)
--- NOTE | 2020-08-30 19:31 | ED ---
General Adult HPI - General Chief complaint: Wound/Laceration Stated complaint: finger stuck in emerging slide machine tender Time Seen by Provider: 08/30/20 17:46 Source: patient, RN notes reviewed, old records reviewed Mode of arrival: ambulatory Limitations: no limitations - History of Present Illness Initial comments: 54-year-old female patient proceeded to complaint of seizure to her left hand. Patient reports that she was using a food service substitute to crush up chicken nuggets that were reported correct for her parents. Reports that she put her hand in the processor and accidentally pressed the button and the blade and causing a laceration. States the last tetanus was a little over 5 years ago. Denies any other complaints. Systemic: Pt denies fatigue, fever/chills, rash. Pt denies weakness, night sweats, weight loss. Neuro: Pt denies headache, visual disturbances, syncope or pre-syncope. HEENT: Pt denies ocular discharge or irritation, otalgia, rhinorrhea, pharyngitis or notable lymphadenopathy. Cardiopulmonary: Pt denies chest pain, SOB, heart palpitations, dyspnea on exertion. Abdominal/GI: Pt denies abdominal pain, n/v/d. : Pt denies dysuria, burning w/ urination, frequency/urgency. Denies new onset urinary or bowel incontinence. MSK: Pt denies myalgia, loss of strength or function in extremities. Neuro: Pt denies new onset weakness, paresthesias. - Related Data Home Medications Medication Instructions Recorded Confirmed PHENobarbital [Phenobarbital] 64.8 mg PO BID 08/11/15 03/21/19 Cholecalciferol [Vitamin D3] 1,000 unit PO DAILY 09/21/17 03/21/19 Glucosam/Robbi-Msm1/C/Abelino/Bosw 1 tab PO DAILY 09/21/17 03/21/19 [Glucosamine-Chondroitin Tablet] Multivitamin [Multivitamins Adult PO DAILY 09/19/18 Gummies] Previous Rx's Medication Instructions Recorded Misoprostol [Cytotec] 200 mcg VAGINAL ONCE #2 tablet 03/13/19 methylPREDNISolone [Medrol Dose 4 mg PO DIRECTED #1 pack 07/30/20 Pack] Allergies Allergy/AdvReac Type Severity Reaction Status Date / Time No Known Allergies Allergy Verified 08/30/20 17:44 Review of Systems ROS Statement: Those systems with pertinent positive or pertinent negative responses have been documented in the HPI. ROS Other: All systems not noted in ROS Statement are negative. Past Medical History Past Medical History: Seizure Disorder Additional Past Medical History / Comment(s): "SLEEP SEIZURES" LAST SEIZURE 1983. 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 She has not been sexually active. History of Any Multi-Drug Resistant Organisms: None Reported Past Surgical History: Breast Surgery Additional Past Surgical History / Comment(s): RT BREAST BX BENIGN Past Anesthesia/Blood Transfusion Reactions: No Reported Reaction Additional Past Anesthesia/Blood Transfusion Reaction / Comment(s): NEVER HAS HAD GENERAL ANESTHESIA Past Psychological History: No Psychological Hx Reported Smoking Status: Never smoker Past Alcohol Use History: None Reported Past Drug Use History: None Reported - Past Family History Mother Family Medical History: AFIB, Cancer Additional Family Medical History / Comment(s): BREAST AT AGE 50 LIVING AT 85. Maternal aunt also had breast cancer. Father Family Medical History: Cancer, Renal Disease Additional Family Medical History / Comment(s): PROSTATE. Paternal grandmother had OVARIAN CA. General Exam - General Exam Comments Initial Comments: Constitutional: NAD, AOX3, Pt has pleasant affect. HEENT: NC/AT, trachea midline, neck supple, no lymphadenopathy. External ears appear normal, without discharge. Mucous membranes moist. Eyes PERRLA, EOM intact. There is no scleral icterus. No pallor noted. Cardiopulmonary: RRR, no murmurs, rubs or gallops, no JVD noted. Lungs CTAB in anterior and posterior suero. No peripheral edema. Abdominal exam: Abdomen soft and non-distended. Neuro: CN II-XII grossly intact. MSK: 2 cm laceration to the lateral aspect of the second digit of the left hand distal to the DIP joint. Full active range of motion of the digit. Neurovascularly intact. Capillary refill less than 2 seconds. Radial pulse +2. . Full active ROM in upper and lower extremities, 5/5 stregnth. Limitations: no limitations Course Vital Signs 08/30/20 17:42 Temperature 97.7 F Pulse Rate 71 Respiratory 18 Rate Blood Pressure 115/75 O2 Sat by Pulse 100 Oximetry Medical Decision Making - Medical Decision Making 54-year-old female patient with C for laceration. Patient vital signs stable, afebrile. Tetanus updated. Plain film negative. Wound vigorously irrigated. Full active range of motion of digits. Plain film negative. Approximately 2 simple interrupted sutures. I discharge the patient follow up with primary care provider, return precautions and 3 days of prophylactic Keflex. Case discussed with Dr. Lorenz. Disposition Clinical Impression: Laceration Disposition: HOME SELF-CARE Condition: Stable Instructions (If sedation given, give patient instructions): Laceration (ED) Additional Instructions: follow-up with primary care provider tomorrow. Take antibiotics as directed every 12 hours. Please return for suture removal: Hand: 7-10 days Please monitor for signs and symptoms of infection including: redness, warmth, drainage, discharge. Please return to ED if these signs or symptoms occur, new signs or symptoms develop or if condition worsens in anyway. Is patient prescribed a controlled substance at d/c from ED?: No Referrals: Kevin Waggoner MD [Primary Care Provider] - 1-2 days
[2020-08-30 19:44] VITALS: BP 107/76; PULSE 59; RESP 16
[2020-08-30] MEDS ORDERED: DIPH,PERTUS(ACELL)TETVAC-LF 0.5 ML VIAL IM ONE (19:45)
== END 2020-08-30 19:45 | disposition home or self-care (01) ==
LOC: EC 17:28
DX: S61.211A Laceration without foreign body of left index finger without damage to nail, initial encounter (principal); G40.909 Epilepsy, unspecified, not intractable, without status epilepticus; Z79.899 Other long term (current) drug therapy; Z23 Encounter for immunization; W29.0XXA Contact with powered kitchen appliance, initial encounter
CPT/HCPCS: 73130; 90715; 99283; 90471; J2001

== ENCOUNTER → 2020-11-12 | Outpatient (CLI) | payer OTHER ==
[2020-11-12 11:20] VITALS: BP 111/73; PULSE 58; RESP 18; TEMP 97.8
--- NOTE | 2020-11-12 12:37 | P.HPOB ---
History of Present Illness H&P Date: 11/12/20 Chief Complaint: The patient is here for her routine gynecologic exam and ma mmogram. This is a 54-year-old G0 with an LMP of 2018. The patient denies any postmenopausal bleeding. She is experiencing pelvic discomfort which she states resembles the discomfort she had in 2018 which led her to have an ultrasound done. On 09/19/2018 she complained of some pelvic cramps and pelvic ultrasound showed a small amount of fluid within the uterus. The ultrasound was repeated in February 2019 and this showed a thickened endometrium measuring 1.2 cm. After a failed endometrial biopsy secondary to cervical stenosis, she was referred to Dr. Urbina who did a hysteroscopy and D&C which removed a benign polyp on 05/23/2019. Visualization with the hysteroscopy was suboptimal. The patient had a pelvic ultrasound done on 03/20/2020 which was within normal limits and endometrial thickness was normal measuring 0.3 cm. She states that recently over the past 2 months she has been experiencing a discomfort which she describes as a nagging and annoying discomfort greater on the right side of the pelvis. She rates it at 4 out of 10. She states it also makes her feel like she needs to void even after just voiding. She denies dysuria. She states it is fairly constant especially at night when going to bed. She is otherwise without gynecologic complaints. Review of Systems The patient has gained 3 pounds over the last year. She denies respiratory, cardiac, or G.I. problems. : See HPI. Past Medical History Past Medical History: Seizure Disorder Additional Past Medical History / Comment(s): "SLEEP SEIZURES" LAST SEIZURE 1983. 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 She has not been sexually active. History of Any Multi-Drug Resistant Organisms: None Reported Past Surgical History: Breast Surgery Additional Past Surgical History / Comment(s): RT BREAST BX BENIGN. Balloon sinuplasty. 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 She states she has not been sexually active. - Past Family History Mother Family Medical History: AFIB, Cancer Additional Family Medical History / Comment(s): BREAST CA AT AGE 50 LIVING AT 85. Osteoporosis. Maternal aunt also had breast cancer. Father Family Medical History: Cancer, Renal Disease Additional Family Medical History / Comment(s): PROSTATE CA, lung cancer and colon cancer. Osteoporosis. Paternal grandmother had OVARIAN CA. Sister(s) Additional Family Medical History / Comment(s): Osteopenia. Medications and Allergies Home Medications Medication Instructions Recorded Confirmed Type PHENobarbital [Phenobarbital] 64.8 mg PO BID 08/11/15 11/12/20 History Cholecalciferol [Vitamin D3] 1,000 unit PO DAILY 09/21/17 11/12/20 History Glucosam/Robbi-Msm1/C/[place]el[place]/Bosw 1 tab PO DAILY 09/21/17 11/12/20 History [Glucosamine-Chondroitin Tablet] Multivitamin [Multivitamins Adult 1 tab PO DAILY 09/19/18 11/12/20 History Gummies] Fluticasone Nasal [place] [Flonase 1 spray EA NOSTRIL DAILY 11/12/20 11/12/20 History Nasal [place]] Montelukast [Singulair] 10 mg PO DAILY 11/12/20 11/12/20 History Omeprazole [PriLOSEC] 40 mg PO DAILY 11/12/20 11/12/20 History Allergies Allergy/AdvReac Type Severity Reaction Status Date / Time No Known Allergies Allergy Verified 11/12/20 11:12 Exam Vital Signs Temp Pulse Resp BP Pulse Ox 11/12/20 11:14 97.8 F 58 L 18 111/73 100 Intake and Output 11/11/20 11/12/20 11/12/20 22:59 06:59 14:59 Other: Weight 61.689 kg Height 5 feet 6-1/2 inches, weight 136 pounds, BMI 21.6. This is a well-developed well-nourished white female who is alert and oriented times 3 in no acute distress. HEENT: Within normal limits. NECK: Supple without mass or thyromegaly. CHEST AND LUNGS: Clear to auscultation. HEART: Regular rate and rhythm. BREASTS: Are without mass or discharge. AXILLARY EXAM: Negative for adenopathy. BACK: Negative for CVA tenderness. ABDOMEN: Soft, minimal bilateral low abdominal tenderness without rebound tenderness without palpable masses. PELVIC EXAM: Normal external genitalia with minimal atrophy. Cervix and vagina appear normal with minimal atrophy. The cervix appears nulliparous. There is no cervical motion tenderness. There is no unusual discharge. There is no evidence of prolapse. The uterus is midposition, nongravid size and nontender. There are no palpable adnexal masses. There is mild bilateral adnexal tenderness. There is also mild tenderness anterior to the uterus in the area of the urinary bladder. RECTAL EXAM: Rectovaginal exam is negative for mass or tenderness and is negative for occult blood. EXTREMITIES: Nontender. IMPRESSION: 1. 54-year-old menopausal female with a 2 month history of pelvic discomfort noticed mostly on the right side with bilateral adnexal tenderness on exam today. 2. Urinary urgency with a mildly tender urinary bladder on exam today. PLAN: 1. Pap smear cotest was obtained. 2. Self breast awareness was discussed with the patient. 3. Mammogram will be done today. 4. Urine will be sent for urinalysis and culture with sensitivity. 5. Pelvic ultrasound was recommended. The order slip was given to the patient for this. 6.Osteoporosis prevention was discussed. I have stressed the importance of adequate calcium, vitamin D and regular exercise. Recommended amounts of calcium and vitamin D were also discussed. 7. She was advised to return in one year for her annual well woman exam and as needed.
[2020-11-12 14:00] LABS: Appearance,Urine Cloudy (Clear); Bacteria,Urine Rare /hpf; Bilirubin,Urine Negative (Negative); Blood,Urine Negative (Negative); Calcium Oxalate Crystals,Urine Moderate /hpf; Color,Urine Yellow; Glucose,Urine (UA) Negative (Negative); Ketones,Urine Negative (Negative); Leukocyte Esterase,Urine Negative (Negative); Mucus,Urine Many /hpf; Nitrite,Urine Negative (Negative); PH, Urine 6.5 (5.0-8.0); Protein,Urine Trace (Negative); RBC,Urine 1 /hpf (0-5); Specific Gravity,Urine 1.029 (1.001-1.035); Squamous Epithelial Cell,Urine <1 /hpf (0-4); Urobilinogen,Urine <2.0 mg/dL (<2.0); WBC,Urine 1 /hpf (0-5)
--- NOTE | 2020-11-13 08:15 | MM ---
Reason for exam: screening (asymptomatic). Last mammogram was performed 1 year and 1 month ago. History: Patient has history of high-risk lesion on a previous biopsy at age 49 and is nulliparous. Family history of breast cancer in paternal aunt at age 60 and breast cancer in mother at age 50. High risk MG pre op needle loc RT of the right breast, August 12, 2015. MG discontinued stereo core RT of the right breast, August 05, 2015. Benign left US cyst aspiration of the left breast, July 31, 2008. Benign left US cyst aspiration of the left breast, June 21, 2007. Physical Findings: A clinical breast exam by your physician is recommended on an annual basis and results should be correlated with mammographic findings. MG 3D Screening Mammo W/Cad Bilateral CC and MLO view(s) were taken. Prior study comparison: October 18, 2019, bilateral MG 3d screening mammo w/cad. July 28, 2018, bilateral MG screening mammo w CAD. The breast tissue is extremely dense which could obscure a lesion on mammography. Previous mammotome biopsy in the left breast. There is no discrete abnormality. ASSESSMENT: Negative, BI-RAD 1 RECOMMENDATION: Routine screening mammogram of both breasts in 1 year. Some consider ultrasound of bilateral breasts patients with extremely dense fibroglandular tissue.
--- NOTE | 2020-11-13 11:18 | P.PN ---
Progress Note - Text Progress Note Date: 11/13/20 Urinalysis from 11/12/20 was negative for infection. Moderate calcium oxylate crystals shows on the UA. The patient was notified by phone. She denies any history of kidney stones. I have recommended that she try to stay well hydrated to avoid dehydration which may increase the risk of kidney stones. Await urine culture results.
--- NOTE | 2020-11-19 14:09 | P.PN ---
Progress Note - Text Progress Note Date: 11/19/20 OUTPATIENT FOLLOW-UP NOTE TEST(S)/RESULTS: Test results from 11/12/2020 include negative Pap smear, negative high-risk HPV testing, and benign mammogram, urine culture not showing infection, and pelvic ultrasound showed a small amount of free fluid around the left ovary and was otherwise unremarkable. METHOD OF NOTIFICATION: The patient was notified by phone PATIENT COMMENTS: DIAGNOSIS: Negative Pap smear cotest, benign mammogram, urine tests not showing infection and no significant explanation for her low abdominal pains. DISCUSSION: The patient was instructed to call to be reevaluated if her pains are not improving or worsening. PLAN: She was advised to return in one year for her annual well woman exam and as needed.
== END | disposition home or self-care (01) ==
LOC: WWCWWP 10:55
PROVIDERS: ATTEND Obstetrics & Gynecology
DX: Z12.31 Encounter for screening mammogram for malignant neoplasm of breast (principal); R10.2 Pelvic and perineal pain; R39.15 Urgency of urination
CPT/HCPCS: 77063; 77067; 81001; 87086

== ENCOUNTER → 2020-11-12 | Outpatient (CLI) | payer OTHER ==
--- NOTE | 2020-11-12 13:47 | US ---
EXAMINATION TYPE: US transvaginal DATE OF EXAM: 11/12/2020 COMPARISON: NONE CLINICAL HISTORY: R10.2 PELVIC PAIN. pelvic pain TECHNIQUE: Transvaginal (TV). Patient did not want to wait and fill bladder, preferred TV approach Date of LMP: 3 years ago EXAM MEASUREMENTS: Uterus: 5.8 x 2.6 x 3.3 cm Endometrial Stripe: 0.3 cm Right Ovary: 1.6 x 1.1 x 0.9 cm Left Ovary: 2.0 x 1.1 x 1.1 cm 1. Uterus: Anteverted 2. Endometrium: wnl 3. Right Ovary: Obscured by overlying bowel gas 4. Left Ovary: follicles noted 5. Bilateral Adnexa: anechoic area left adnexa adjacent to left ovary, possible free fluid 6. Posterior cul-de-sac: wnl IMPRESSION: 1. Probable free fluid adjacent to the left adnexa. Left ovarian follicles noted.
== END | disposition home or self-care (01) ==
LOC: RADUSWWP 12:50
PROVIDERS: ATTEND Obstetrics & Gynecology
DX: R10.2 Pelvic and perineal pain (principal)
CPT/HCPCS: 76830

== ENCOUNTER → 2021-08-28 | Outpatient (CLI) | payer OTHER ==
[2021-08-28 19:04] LABS: Folate, Serum 3.3 ng/mL (4.40-31.00)
== END | disposition home or self-care (01) ==
LOC: LABWHC1 11:23
PROVIDERS: ATTEND Family Medicine
DX: K14.6 Glossodynia (principal)
CPT/HCPCS: 36415; 82180; 82607; 82746; 84591

== ENCOUNTER 2021-09-13 20:34 | Emergency (ER) | payer OTHER ==
[2021-09-13 20:42] VITALS: BP 129/79; PULSE 79; RESP 18; TEMP 98.4
[2021-09-13] MEDS ORDERED: IBUPROFEN 600 MG TAB PO STA (21:13)
--- NOTE | 2021-09-13 21:25 | ED ---
General Adult HPI - General Chief complaint: Extremity Injury, Lower Stated complaint: L Ankle Pain Time Seen by Provider: 09/13/21 21:07 Source: patient Mode of arrival: wheelchair Limitations: no limitations - History of Present Illness Initial comments: 55-year-old female presents to the emergency for evaluation of left ankle and foot pain, onset 2:00 this afternoon. Patient states that while she was descending a set of steps, she missed the bottom stair and twisted her ankle. Patient states she was ambulatory afterwards and it was not until this evening that she developed a throbbing discomfort and pain with weight bearing. States she did not take anything for pain prior to arrival and has not been icing the ankle at home. Denies fever, chills, back pain, chest pain, shortness of breath, or numbness and tingling. - Related Data Home Medications Medication Instructions Recorded Confirmed PHENobarbital [Phenobarbital] 64.8 mg PO BID 08/11/15 11/12/20 Cholecalciferol [Vitamin D3] 1,000 unit PO DAILY 09/21/17 11/12/20 Glucosam/Robbi-Msm1/C/Abelino/Bosw 1 tab PO DAILY 09/21/17 11/12/20 [Glucosamine-Chondroitin Tablet] Multivitamin [Multivitamins Adult 1 tab PO DAILY 09/19/18 11/12/20 Gummies] Fluticasone Nasal [place] [Flonase 1 spray EA NOSTRIL DAILY 11/12/20 11/12/20 Nasal [place]] Montelukast [Singulair] 10 mg PO DAILY 11/12/20 11/12/20 Omeprazole [PriLOSEC] 40 mg PO DAILY 11/12/20 11/12/20 Previous Rx's Medication Instructions Recorded Ibuprofen [Motrin] 600 mg PO Q8HR PRN #20 tab 09/13/21 Allergies Allergy/AdvReac Type Severity Reaction Status Date / Time No Known Allergies Allergy Verified 09/13/21 20:40 Review of Systems ROS Statement: Those systems with pertinent positive or pertinent negative responses have been documented in the HPI. ROS Other: All systems not noted in ROS Statement are negative. Past Medical History Past Medical History: Seizure Disorder Additional Past Medical History / Comment(s): "SLEEP SEIZURES" LAST SEIZURE 1983. 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 She has not been sexually active. History of Any Multi-Drug Resistant Organisms: None Reported Past Surgical History: Breast Surgery Additional Past Surgical History / Comment(s): RT BREAST BX BENIGN. Balloon sinuplasty. Colonoscopy 2017(next after 5yr) Past Anesthesia/Blood Transfusion Reactions: No Reported Reaction Additional Past Anesthesia/Blood Transfusion Reaction / Comment(s): NEVER HAS HAD GENERAL ANESTHESIA Past Psychological History: No Psychological Hx Reported Smoking Status: Never smoker Past Alcohol Use History: None Reported Past Drug Use History: None Reported - Past Family History Sister(s) Additional Family Medical History / Comment(s): Osteopenia. Mother Family Medical History: AFIB, Cancer Additional Family Medical History / Comment(s): BREAST CA AT AGE 50 LIVING AT 85. Osteoporosis. Maternal aunt also had breast cancer. Father Family Medical History: Cancer, Renal Disease Additional Family Medical History / Comment(s): PROSTATE CA, lung cancer and colon cancer. Osteoporosis. Paternal grandmother had OVARIAN CA. General Exam Limitations: no limitations (Well-developed, well-nourished female in no acute distress. Initial temperature 98.4, pulse 79, respirations 18, blood pressure 129/70 98% on room air.) General appearance: alert, in no apparent distress Respiratory exam: Present: normal lung sounds bilaterally. Absent: respiratory distress, wheezes, rales, rhonchi, stridor Cardiovascular Exam: Present: regular rate, normal rhythm, normal heart sounds. Absent: systolic murmur, diastolic murmur, rubs, gallop, clicks Left Lower Leg exam: Present: normal inspection. Absent: swelling, abrasion Ankle exam: Present: tenderness (Tenderness upon palpation to the lateral aspect of the left ankle), swelling (Mild swelling around the lateral malleolus). Absent: full ROM Foot/Toe exam: Present: normal inspection, tenderness (Tenderness across the dorsal surface of the mid foot). Absent: swelling Neurovascular tendon exam: Present: no vascular compromise (+2 pedal and postt ibial pulses; distal sensation intact; able to move toes, though does create some discomfort). Absent: pulse deficit, abnormal cap refill, motor deficit, pallor Neurological exam: Present: alert, oriented X3, CN II-XII intact Psychiatric exam: Present: normal affect, normal mood Skin exam: Present: warm, dry, intact, normal color. Absent: rash Course Vital Signs 09/13/21 20:40 Temperature 98.4 F Pulse Rate 79 Respiratory 18 Rate Blood Pressure 129/79 O2 Sat by Pulse 98 Oximetry Procedures - Orthopedic Splinting/Casting Injury #1 Side: left Lower Extremity Injury Location: ankle Lower Extremity Immobilizer: AirCast Additional Comments: Aircast applied to the left ankle. Splint education reviewed with patient. Medical Decision Making - Medical Decision Making 55-year-old female presents to the emergency department for evaluation of left ankle pain. Patient describes an injury occurring as the result of eversion. Physical exam is essentially negative; there is no swelling or contusion. +2 pedal and posttibial pulses. Decreased range of motion due to pain. Distal sensation intact. X-rays were obtained and show no evidence of acute fracture. Air splint was applied to the left ankle. Patient was instructed to rest the injury and was provided with a work note. Discussed elevating and icing the extremity when at rest. I explained the compression and support aspects of the Aircast. Patient will be prescribed Motrin for pain control. Instructed to follow up with her primary care provider as scheduled. This patient's case was discussed with my attending Dr. Angela. - Radiology Data Radiology results: report reviewed, image reviewed X-Rays of the left foot and ankle were obtained. Reports were reviewed in their entirety. Impressions per Dr. Bermeo include no acute abnormality of the left ankle or foot. No fracture. Disposition Clinical Impression: Left ankle sprain Disposition: HOME SELF-CARE Condition: Stable Instructions (If sedation given, give patient instructions): Ankle Sprain (ED), R.I.C.E. Treatment (ED) Additional Instructions: Follow RICE instructions. Utilize air splint when ambulatory. Gentle range of motion activity while at rest. Follow-up with your primary care provider as directed. Return to the emergency department with any new, worsening, or concerning symptoms. Prescriptions: Ibuprofen [Motrin] 600 mg PO Q8HR PRN #20 tab PRN Reason: Pain Is patient prescribed a controlled substance at d/c from ED?: No Referrals: None,Stated [REFERRING] - 1-2 days Time of Disposition: 22:18
--- NOTE | 2021-09-13 21:43 | XR ---
EXAMINATION TYPE: XR foot complete LT DATE OF EXAM: 09/13/2021 COMPARISON: NONE HISTORY: Pain TECHNIQUE: 3 views FINDINGS: There is mild spurring at the first MP joint. Metatarsals are intact. There are no erosions . I see no fracture nor dislocation. IMPRESSION: No acute abnormality of the left foot.
--- NOTE | 2021-09-13 21:53 | XR ---
EXAMINATION TYPE: XR ankle complete LT DATE OF EXAM: 09/13/2021 COMPARISON: NONE HISTORY: Ankle pain TECHNIQUE: 3 views FINDINGS: Ankle mortise is anatomic. I see no fracture nor dislocation. Joint spaces are normal. IMPRESSION: No acute abnormality of the left ankle. No fracture.
== END 2021-09-13 22:34 | disposition home or self-care (01) ==
LOC: EC 20:34
DX: S93.402A Sprain of unspecified ligament of left ankle, initial encounter (principal); G40.909 Epilepsy, unspecified, not intractable, without status epilepticus; Z79.899 Other long term (current) drug therapy; X50.1XXA Overexertion from prolonged static or awkward postures, initial encounter
CPT/HCPCS: 99283; 73610; 73630; L4350

== ENCOUNTER → 2021-11-18 | Outpatient (CLI) | payer OTHER ==
--- NOTE | 2021-11-23 13:30 | MM ---
Reason for exam: screening (asymptomatic). Last mammogram was performed 1 year ago. History: Patient has history of high-risk lesion on a previous biopsy at age 49 and is nulliparous. Family history of breast cancer in paternal aunt at age 60 and breast cancer in mother at age 50. High risk MG pre op needle loc RT of the right breast, August 12, 2015. MG discontinued stereo core RT of the right breast, August 05, 2015. Benign left US cyst aspiration of the left breast, July 31, 2008. Benign left US cyst aspiration of the left breast, June 21, 2007. Physical Findings: A clinical breast exam by your physician is recommended on an annual basis and results should be correlated with mammographic findings. MG 3D Screening Mammo W/Cad Bilateral CC and MLO view(s) were taken. Prior study comparison: November 12, 2020, bilateral MG 3d screening mammo w/cad. October 18, 2019, bilateral MG 3d screening mammo w/cad. The breast tissue is heterogeneously dense. This may lower the sensitivity of mammography. No significant changes when compared with prior studies. ASSESSMENT: Benign, BI-RAD 2 RECOMMENDATION: Routine screening mammogram of both breasts in 1 year.
== END | disposition home or self-care (01) ==
LOC: RADMAMWWP 08:40
PROVIDERS: ATTEND Obstetrics & Gynecology
DX: Z12.31 Encounter for screening mammogram for malignant neoplasm of breast (principal)
CPT/HCPCS: 77063; 77067

== ENCOUNTER → 2022-07-07 | Outpatient (CLI) | payer OTHER ==
[~2022-07-07] MED LIST: BEBTELOVIMAB (EUA) 175 MG/2 ML VIAL IV NR
[2022-07-07 13:58] VITALS: RESP 16; TEMP 98.4
[2022-07-07 14:40] VITALS: BP 119/76; PULSE 62
== END | disposition home or self-care (01) ==
LOC: PROCWHC3 12:55
PROVIDERS: ATTEND Physician Assistant Medical
DX: U07.1 COVID-19 (principal)
CPT/HCPCS: Q0222; M0222

== ENCOUNTER 2022-08-17 19:21 | Emergency (ER) | payer OTHER ==
[2022-08-17 20:18] VITALS: BP 111/67; PULSE 76; RESP 18; TEMP 98.2
[2022-08-17] MEDS ORDERED: DIPH,PERTUS(ACELL)TETVAC-LF 0.5 ML VIAL IM ONE (20:49)
[2022-08-17] MEDS ORDERED: AMOXIC-POT CLAV 875-125MG 1 EACH TAB PO STA (20:49)
--- NOTE | 2022-08-17 20:52 | ED ---
Animal Bite HPI - General Chief Complaint: Animal Bite Stated Complaint: cat bite Time Seen by Provider: 08/17/22 20:34 Source: patient, RN notes reviewed Mode of arrival: ambulatory Limitations: no limitations - History of Present Illness Initial Comments: This is a pleasant 56-year-old female who presents emergency department complaining of a cat bite to her left lower leg. Patient states that she was playing with the cat who has been astray in her neighborhood for a few months. She states sustained some scratches to her hand, legs, and 1 puncture wound to her left lower leg. Superficial but did draw blood. Patient has the cat at home is going to call [employer] tomorrow. She did call the police prior to arrival. Patient denying any other injuries. Injury occurred just prior to arrival. Patient denies any significant pain. No headache, no fever or chills, no changes in vision or hearing, no sore throat or difficulty with speech, no neck pain, no chest pain or shortness of breath, no abdominal pain, no nausea or vomiting, no changes in urination or bowel movements, no numbness or tingling, no extremity pain, no skin rashes or lesions. Past medical, surgical, social, and family history reviewed. Complaint: animal bite - Related Data Home Medications Medication Instructions Recorded Confirmed PHENobarbital [Phenobarbital] 64.8 mg PO BID 08/11/15 11/12/20 Cholecalciferol [Vitamin D3] 1,000 unit PO DAILY 09/21/17 11/12/20 Glucosam/Robbi-Msm1/C/Abelino/Bosw 1 tab PO DAILY 09/21/17 11/12/20 [Glucosamine-Chondroitin Tablet] Multivitamin [Multivitamins Adult 1 tab PO DAILY 09/19/18 11/12/20 Gummies] Fluticasone Nasal [place] [Flonase 1 spray EA NOSTRIL DAILY 11/12/20 11/12/20 Nasal [place]] Montelukast [Singulair] 10 mg PO DAILY 11/12/20 11/12/20 Omeprazole [PriLOSEC] 40 mg PO DAILY 11/12/20 11/12/20 Previous Rx's Medication Instructions Recorded Ibuprofen [Motrin] 600 mg PO Q8HR PRN #20 tab 09/13/21 Amoxic-Pot Clav 875-125Mg 1 tab PO Q12HR 1 Days #20 tab 08/17/22 [Augmentin 765-846] Allergies Allergy/AdvReac Type Severity Reaction Status Date / Time No Known Allergies Allergy Verified 08/17/22 20:18 Review of Systems ROS Statement: Those systems with pertinent positive or pertinent negative responses have been documented in the HPI. ROS Other: All systems not noted in ROS Statement are negative. Past Medical History Past Medical History: Seizure Disorder Additional Past Medical History / Comment(s): "SLEEP SEIZURES" LAST SEIZURE 1983. 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 She has not been sexually active. History of Any Multi-Drug Resistant Organisms: None Reported Past Surgical History: Breast Surgery Additional Past Surgical History / Comment(s): RT BREAST BX BENIGN. Balloon sinuplasty. Colonoscopy 2017(next after 5yr) Past Anesthesia/Blood Transfusion Reactions: No Reported Reaction Additional Past Anesthesia/Blood Transfusion Reaction / Comment(s): NEVER HAS HAD GENERAL ANESTHESIA Past Psychological History: No Psychological Hx Reported Smoking Status: Never smoker Past Alcohol Use History: None Reported Past Drug Use History: None Reported - Past Family History Sister(s) Additional Family Medical History / Comment(s): Osteopenia. Mother Family Medical History: AFIB, Cancer Additional Family Medical History / Comment(s): BREAST CA AT AGE 50 LIVING AT 85. Osteoporosis. Maternal aunt also had breast cancer. Father Family Medical History: Cancer, Renal Disease Additional Family Medical History / Comment(s): PROSTATE CA, lung cancer and colon cancer. Osteoporosis. Paternal grandmother had OVARIAN CA. General Exam - General Exam Comments Initial Comments: Healthy-appearing 56-year-old female in no acute distress. Patient does not appear to be ill or toxic. Limitations: no limitations General appearance: alert, in no apparent distress Head exam: Present: atraumatic, normocephalic, normal inspection Eye exam: Present: normal appearance, EOMI. Absent: scleral icterus, conjunctival injection, periorbital swelling ENT exam: Present: normal exam Neck exam: Present: normal inspection Respiratory exam: Present: normal lung sounds bilaterally. Absent: respiratory distress, wheezes, rales, rhonchi, stridor Cardiovascular Exam: Present: regular rate, normal rhythm, normal heart sounds. Absent: systolic murmur, diastolic murmur, rubs, gallop, clicks GI/Abdominal exam: Present: soft. Absent: tenderness Extremities exam: Present: full ROM, normal capillary refill, other (Tiny scratches which are superficial to the lower legs. 2 lesser extent, the right hand.). Absent: normal inspection (Superficial puncture wound noted to the medial aspect of left lower leg. No evidence of foreign body. Small but did make mucous membrane contact. No distal proximal injuries.), tenderness, pedal edema, joint swelling, calf tenderness Back exam: Present: normal inspection Neurological exam: Present: alert, oriented X3, CN II-XII intact Psychiatric exam: Present: normal affect, normal mood Skin exam: Present: warm, dry, normal color. Absent: rash, cyanosis, diaphoretic, erythema, urticaria, vesicles, petechiae, pallor, mottled Course Vital Signs 08/17/22 20:16 Temperature 98.2 F Pulse Rate 76 Respiratory 18 Rate Blood Pressure 111/67 O2 Sat by Pulse 100 Oximetry Medical Decision Making - Medical Decision Making Patient be treated empirically with Augmentin for Night. This is a very tiny wound but appears to have made mucous membrane contact. Patient counseled on warm compresses. Counseled return if all parameters. Tetanus was updated. Patient has the animal and closed at home. She is going to call animal control tomorrow as instructed by the Police Department. Discussed the propensity for Bites to get infected with the patient. Patient voiced understanding. Patient was told to return to the ER for any signs or symptoms worsen. Told to return immediately if any other problems arise. All questions answered. Treatment plan discussed. Patient in agreement Every effort has been made to ensure accuracy of this dictation. However, due to the limitations of electronic medical records and dictation devices, errors in charting still occur. [address] [place] Disposition Clinical Impression: Cat bite, Abrasion hip/leg, Puncture wound of left lower leg Disposition: HOME SELF-CARE Instructions (If sedation given, give patient instructions): Animal Bite (ED) Additional Instructions: Apply warm compresses to the affected area 4 times daily with warm soap and water. Follow-up with your regular doctor in 2 days for a wound check. Take antibiotics as directed. Call animal control tomorrow to, and get the cat. They can monitor the cat and test the cat for rabies if need be. Take antibiotics as directed until gone, cat bites are notorious for becoming in fected. Follow-up with your regular physician as directed. Return to the ER immediately if any symptoms worsen, new symptoms arise, or any other problems develop. Prescriptions: Amoxic-Pot Clav 875-125Mg [Augmentin 875-125] 1 tab PO Q12HR 1 Days #20 tab Is patient prescribed a controlled substance at d/c from ED?: No Referrals: Kevin Waggoner MD [Primary Care Provider] - 08/19/22 Time of Disposition: 20:51
== END 2022-08-17 21:04 | disposition home or self-care (01) ==
LOC: EC 19:21
DX: S81.852A Open bite, left lower leg, initial encounter (principal); S80.812A Abrasion, left lower leg, initial encounter; S81.832A Puncture wound without foreign body, left lower leg, initial encounter; G40.909 Epilepsy, unspecified, not intractable, without status epilepticus; Z23 Encounter for immunization; Z79.899 Other long term (current) drug therapy; W55.01XA Bitten by cat, initial encounter; Y92.009 Unspecified place in unspecified non-institutional (private) residence as the place of occurrence of the external cause
CPT/HCPCS: 90471; 90715; 96372; 99283

== ENCOUNTER → 2022-11-19 | Outpatient (CLI) | payer OTHER ==
--- NOTE | 2022-11-22 09:28 | MM ---
Reason for Exam: Screening (asymptomatic). Last screening mammogram was performed 12 month(s) ago. Patient History: Menarche at age 14. Patient has no children. Postmenopausal. 08/12/2015, High risk Core Biopsy on the right side. 07/31/2008, Benign Cyst Aspiration on the left side. 06/21/2007, Benign Cyst Aspiration on the left side. 08/05/2015, MG discontinued stereo core RT on the right side. Paternal aunt had breast cancer, age 60. Mother had breast cancer, age 50. Risk Values: Mindy 5 year model risk: 2.7%. NCI Lifetime model risk: 18.1%. Prior Study Comparison: 10/18/2019 Bilateral Screening Mammogram, [facility]. 11/12/2020 Bilateral Screening Mammogram, [facility]. 11/18/2021 Bilateral Screening Mammogram, [facility]. Tissue Density: The breast tissue is heterogeneously dense. This may lower the sensitivity of mammography. Findings: Analyzed By CAD. Left biopsy clip. There is no suspicious group of microcalcifications or new suspicious mass in either breast. Overall Assessment: Negative, BI-RAD 1 Management: Screening Mammogram of both breasts in 1 year. A clinical breast exam by your physician is recommended on an annual basis and results should be correlated with mammographic findings. [facility] will attempt to contact patient to return for supplemental views and ultrasound if indicated. Electronically signed and approved by: Tommy Cruz DO
== END | disposition home or self-care (01) ==
LOC: RADMAMWWP 07:11
PROVIDERS: ATTEND Obstetrics & Gynecology
DX: Z12.31 Encounter for screening mammogram for malignant neoplasm of breast (principal); Z78.0 Asymptomatic menopausal state; Z80.3 Family history of malignant neoplasm of breast
CPT/HCPCS: 77063; 77067

== ENCOUNTER → 2022-11-22 | Outpatient (CLI) | payer OTHER ==
--- NOTE | 2022-11-23 09:52 | US ---
EXAMINATION TYPE: US pelvis complete transvag DATE OF EXAM: 11/22/2022 COMPARISON: 11/12/2020 CLINICAL HISTORY: 56-year-old female [id number] URGENCY OF URINATION. TECHNIQUE: Transabdominal sonographic images of the pelvis were acquired. Transvaginal sonographic i mages were medically necessary to better assess the anatomy. Date of LMP: Postmenopausal FINDINGS: EXAM MEASUREMENTS: Uterus: 5.2 x 2.0 x 3.2 cm Endometrial Stripe: 0.15 cm Right Ovary: 1.4 x 2.4 x 1.4 cm Left Ovary: Not visualized 1. Uterus: Anteverted and otherwise wnl 2. Endometrium: wnl 3. Right Ovary: wnl 4. Left Ovary: Obscured by overlying bowel gas 5. Bilateral Adnexa: wnl 6. Posterior cul-de-sac: wnl IMPRESSION: Unable to visualize the left ovary due to bowel gas. Small right ovary. Thin endometrial stripe at 1. 5 mm. No specific abnormality seen.
== END | disposition home or self-care (01) ==
LOC: RADUSWWP 15:57
PROVIDERS: ATTEND Family Medicine
DX: R39.15 Urgency of urination (principal)
CPT/HCPCS: 76830; 76856

== ENCOUNTER 2023-10-06 21:45 | Emergency (ER) | payer OTHER ==
[2023-10-06 22:14] VITALS: TEMP 97.9
[2023-10-06] MEDS ORDERED: PANTOPRAZOLE 40 MG/10 ML VIAL IVP STA (23:54)
[2023-10-06] MEDS ORDERED: SODIUM CHLORIDE 0.9% 500 ML 500 ML IV STA (23:54)
--- NOTE | 2023-10-06 23:55 | ED ---
GI Bleed HPI - General Chief complaint: GI Bleed Stated complaint: GI Bleed Time Seen by Provider: 10/06/23 23:41 Source: patient, RN notes reviewed, old records reviewed Mode of arrival: ambulatory Limitations: no limitations - History of Present Illness Initial comments: This is a 67-year-old female to the emergency department for evaluation. Patient Dese for evaluation regards to GI bleed or blood in the stool. Patient has history of irritable bowel syndrome history of prior colonoscopies no the patient does get frequent colonoscopies every 3 years. Patient has no current abdominal pain no lightheadedness dizziness no feelings of syncope or near syncope. Patient is on blood thinners complaint: blood on toilet paper, blood streaked stool -: hour(s) Radiation: none Quality: painless Consistency: intermittent Improves with: none Worsens with: none Context: history of GI bleed Associated Symptoms: denies other symptoms Treatments Prior to Arrival: none - Related Data Home Medications Medication Instructions Recorded Confirmed PHENobarbital [Phenobarbital] 64.8 mg PO BID 08/11/15 11/12/20 Cholecalciferol [Vitamin D3] 1,000 unit PO DAILY 09/21/17 11/12/20 Glucosam/Robbi-Msm1/C/Abelino/Bosw 1 tab PO DAILY 09/21/17 11/12/20 [Glucosamine-Chondroitin Tablet] Multivitamin [Multivitamins Adult 1 tab PO DAILY 09/19/18 11/12/20 Gummies] Fluticasone Nasal [place] [Flonase 1 spray EA NOSTRIL DAILY 11/12/20 11/12/20 Nasal [place]] Montelukast [Singulair] 10 mg PO DAILY 11/12/20 11/12/20 Omeprazole [PriLOSEC] 40 mg PO DAILY 11/12/20 11/12/20 Previous Rx's Medication Instructions Recorded Ibuprofen [Motrin] 600 mg PO Q8HR PRN #20 tab 09/13/21 Amoxic-Pot Clav 875-125Mg 1 tab PO Q12HR 1 Days #20 tab 08/17/22 [Augmentin 875-125] Allergies Allergy/AdvReac Type Severity Reaction Status Date / Time No Known Allergies Allergy Verified 08/17/22 20:18 Review of Systems ROS Statement: Those systems with pertinent positive or pertinent negative responses have been documented in the HPI. ROS Other: All systems not noted in ROS Statement are negative. Past Medical History Past Medical History: Seizure Disorder Additional Past Medical History / Comment(s): "SLEEP SEIZURES" LAST SEIZURE 1983. 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 She has not been sexually active. History of Any Multi-Drug Resistant Organisms: None Reported Past Surgical History: Breast Surgery Additional Past Surgical History / Comment(s): RT BREAST BX BENIGN. Balloon sinuplasty. Colonoscopy 2017(next after 5yr) Past Anesthesia/Blood Transfusion Reactions: No Reported Reaction Additional Past Anesthesia/Blood Transfusion Reaction / Comment(s): NEVER HAS HAD GENERAL ANESTHESIA Past Psychological History: No Psychological Hx Reported Smoking Status: Never smoker Past Alcohol Use History: None Reported Past Drug Use History: None Reported - Past Family History Sister(s) Additional Family Medical History / Comment(s): Osteopenia. Mother Family Medical History: AFIB, Cancer Additional Family Medical History / Comment(s): BREAST CA AT AGE 50 LIVING AT 85. Osteoporosis. Maternal aunt also had breast cancer. Father Family Medical History: Cancer, Renal Disease Additional Family Medical History / Comment(s): PROSTATE CA, lung cancer and colon cancer. Osteoporosis. Paternal grandmother had OVARIAN CA. General Exam Limitations: no limitations General appearance: alert, in no apparent distress Head exam: Present: atraumatic, normocephalic, normal inspection Eye exam: Present: normal appearance, PERRL, EOMI. Absent: scleral icterus, conjunctival injection, periorbital swelling ENT exam: Present: normal exam, mucous membranes moist Neck exam: Present: normal inspection. Absent: tenderness, meningismus, lymphadenopathy Respiratory exam: Present: normal lung sounds bilaterally. Absent: respiratory distress, wheezes, rales, rhonchi, stridor Cardiovascular Exam: Present: regular rate, normal rhythm, normal heart sounds. Absent: systolic murmur, diastolic murmur, rubs, gallop, clicks GI/Abdominal exam: Present: soft, normal bowel sounds. Absent: distended, tenderness, guarding, rebound, rigid Extremities exam: Present: normal inspection, full ROM, normal capillary refill. Absent: tenderness, pedal edema, joint swelling, calf tenderness Back exam: Present: normal inspection Neurological exam: Present: alert, oriented X3, CN II-XII intact Psychiatric exam: Present: normal affect, normal mood Skin exam: Present: warm, dry, intact, normal color. Absent: rash Course Vital Signs 10/06/23 10/07/23 10/07/23 21:46 01:10 02:26 Temperature 97.9 F Pulse Rate 63 64 67 Respiratory 18 12 12 Rate Blood Pressure 150/83 124/80 111/71 O2 Sat by Pulse 99 98 100 Oximetry 10/07/23 10/07/23 10/07/23 04:37 06:31 08:27 Temperature Pulse Rate 65 66 58 L Respiratory 18 18 17 Rate Blood Pressure 115/74 114/69 113/77 O2 Sat by Pulse 100 98 98 Oximetry - Reevaluation(s) Reevaluation #1: 10/07/23 01:50 Medical record is reviewed Reevaluation #2: 10/07/23 01:50 No current active GI bleeding or blood Reevaluation #3: 10/07/23 01:50 Patient is for results questions answered 10/07/23 07:45 Patient's last bowel movement had no blood in Reevaluation #4: 10/07/23 01:50 Was pt. sent in by a medical professional or institution (, PA, IRIDOLOGIST, urgent care, hospital, or alf...) When possible be specific @ -no Did you speak to anyone other than the patient for history (EMS, parent, family, police, friend...)? What history was obtained from this source @ -no Did you review nursing and triage notes (agree or disagree)? Why? @ -agree Are old charts reviewed (outside hosp., previous admission, EMS record, old EKG, old radiological studies, urgent care reports/EKG's, alf records)? Report findings @ -yes Differential Diagnosis (chest pain, altered mental status, abdominal pain women, abdominal pain men, vaginal bleeding, weakness, fever, dyspnea, syncope, headache, dizziness, GI bleed, back pain, seizure, CVA, palpatations, mental health, musculoskeletal)? @ -prior EKG interpreted by me (3pts min.). @ -yes X-rays interpreted by me (1pt min.). @ -no CT interpreted by me (1pt min.). @ -yes U/S interpreted by me (1pt. min.). @ -no What testing was considered but not performed or refused? (CT, X-rays, U/S, labs)? Why? @ -none What meds were considered but not given or refused? Why? @ -none Did you discuss the management of the patient with other professionals (professionals i.e. , PA, IRIDOLOGIST, lab, RT, psych nurse, social group worker, sweatband cutting machine operator, teacher, operations officer, egg caser)? Give summary @ -no Was smoking cessation discussed for >3mins.? @ -no Was critical care preformed (if so, how long)? @ -no Were there social determinants of health that impacted care today? How? (Homelessness, low income, unemployed, alcoholism, drug addiction, transportation, low edu. Level, literacy, decrease access to med. care, skilled nursing, rehab)? @ -none Was there de-escalation of care discussed even if they declined (Discuss DNR or withdrawal of care, Hospice)? DNR status @ -no What co-morbidities impacted this encounter? (DM, HTN, Smoking, COPD, CAD, Cancer, CVA, ARF, Chemo, Hep., AIDS, mental health diagnosis, sleep apnea, morbid obesity)? @ -none Was patient admitted / discharged? Hospital course, mention meds given and route, prescriptions, significant lab abnormalities, going to OR and other pertinent info. @ - 57 female to the emergency department for evaluation today. Patient will be discharged home with normal hemoglobin and no significant current active GI bleeding with normal vital signs are stable, patient was told there was a possible ability to transfer patient Yuli Chao for GI evaluation which she is refusing Discharged Undiagnosed new problem with uncertain prognosis? @ -no Drug Therapy requiring intensive monitoring for toxicity (Heparin, Nitro, Insulin, Cardizem)? @ -no Were any procedures done? @ -no Diagnosis/symptom? @ -3 times a day Acute, or Chronic, or Acute on Chronic? @ -Acute Uncomplicated (without systemic symptoms) or Complicated (systemic symptoms)? @ -Complicated Side effects of treatment? @ -no Exacerbation, Progression, or Severe Exacerbation? @ -exacerbation Poses a threat to life or bodily function? How? (Chest pain, [place], [place], pneumonia, PE, COPD, DKA, ARF, appy, cholecystitis, CVA, Diverticulitis, Homicidal, Suicidal, threat to staff... and all critical care pts) @ -no Medical Decision Making - Medical Decision Making 57 female to the emergency department for evaluation today. Patient will be discharged home with normal hemoglobin and no significant current active GI bleeding with normal vital signs are stable, patient was told there was a possible ability to transfer patient Yuli Chao for GI evaluation which she is refusing - Lab Data Result diagrams: 10/07/23 04:36 10/07/23 00:05 Lab Results 10/07/23 10/07/23 10/07/23 Range/Units 00:05 00:05 00:05 WBC 4.8 (3.8-10.6) k/uL RBC 4.53 (3.80-5.40) m/uL Hgb 13.4 (11.4-16.0) gm/dL Hct 40.2 (34.0-46.0) % MCV 88.9 (80.0-100.0) fL MCH 29.6 (25.0-35.0) pg MCHC 33.2 (31.0-37.0) g/dL RDW 12.7 (11.5-15.5) % Plt Count 163 (150-450) k/uL MPV 8.4 Neutrophils % 56 % Lymphocytes % 31 % Monocytes % 6 % Eosinophils % 3 % Basophils % 0 % Neutrophils # 2.7 (1.3-7.7) k/uL Lymphocytes # 1.5 (1.0-4.8) k/uL Monocytes # 0.3 (0-1.0) k/uL Eosinophils # 0.1 (0-0.7) k/uL Basophils # 0.0 (0-0.2) k/uL PT 11.7 (10.0-12.5) sec INR 1.1 (<1.2) APTT 26.7 (22.0-30.0) sec Sodium 143 (137-145) mmol/L Potassium 3.8 (3.5-5.1) mmol/L Chloride 104 (98-107) mmol/L Carbon Dioxide 26 (22-30) mmol/L Anion Gap 13 mmol/L BUN 5 L (7-17) mg/dL Creatinine 0.68 (0.52-1.04) mg/dL Est GFR (CKD-EPI)AfAm >90 (>60 ml/min/1.73 sqM) Est GFR (CKD-EPI)NonAf >90 (>60 ml/min/1.73 sqM) Glucose 99 (74-99) mg/dL Calcium 9.1 (8.4-10.2) mg/dL Total Bilirubin 0.4 (0.2-1.3) mg/dL AST 23 (14-36) U/L ALT 15 (4-34) U/L Alkaline Phosphatase 81 (38-126) U/L Troponin I (0.000-0.034) ng/mL Total Protein 7.3 (6.3-8.2) g/dL Albumin 4.5 (3.5-5.0) g/dL Blood Type Blood Type Confirm Blood Type Recheck Bld Type Recheck Status Antibody Screen Spec Expiration Date 10/07/23 10/07/23 10/07/23 Range/Units 00:05 00:05 00:38 WBC (3.8-10.6) k/uL RBC (3.80-5.40) m/uL Hgb (11.4-16.0) gm/dL Hct (34.0-46.0) % MCV (80.0-100.0) fL MCH (25.0-35.0) pg MCHC (31.0-37.0) g/dL RDW (11.5-15.5) % Plt Count (150-450) k/uL MPV Neutrophils % % Lymphocytes % % Monocytes % % Eosinophils % % Basophils % % Neutrophils # (1.3-7.7) k/uL Lymphocytes # (1.0-4.8) k/uL Monocytes # (0-1.0) k/uL Eosinophils # (0-0.7) k/uL Basophils # (0-0.2) k/uL PT (10.0-12.5) sec INR (<1.2) APTT (22.0-30.0) sec Sodium (137-145) mmol/L Potassium (3.5-5.1) mmol/L Chloride (98-107) mmol/L Carbon Dioxide (22-30) mmol/L Anion Gap mmol/L BUN (7-17) mg/dL Creatinine (0.52-1.04) mg/dL Est GFR (CKD-EPI)AfAm (>60 ml/min/1.73 sqM) Est GFR (CKD-EPI)NonAf (>60 ml/min/1.73 sqM) Glucose (74-99) mg/dL Calcium (8.4-10.2) mg/dL Total Bilirubin (0.2-1.3) mg/dL AST (14-36) U/L ALT (4-34) U/L Alkaline Phosphatase (38-126) U/L Troponin I <0.012 (0.000-0.034) ng/mL Total Protein (6.3-8.2) g/dL Albumin (3.5-5.0) g/dL Blood Type O Positive Blood Type Confirm O Positive Blood Type Recheck No Previous Record Bld Type Recheck Status CABO Indicated Antibody Screen NEGATIVE Spec Expiration Date 10/10/2023 - 230410/07/23 Range/Units 04:36 WBC 4.5 (3.8-10.6) k/uL RBC 3.97 (3.80-5.40) m/uL Hgb 12.0 (11.4-16.0) gm/dL Hct 35.5 (34.0-46.0) % MCV 89.2 (80.0-100.0) fL MCH 30.3 (25.0-35.0) pg MCHC 34.0 (31.0-37.0) g/dL RDW 12.5 (11.5-15.5) % Plt Count 140 L (150-450) k/uL MPV 7.8 Neutrophils % 66 % Lymphocytes % 22 % Monocytes % 6 % Eosinophils % 3 % Basophils % 0 % Neutrophils # 3.0 (1.3-7.7) k/uL Lymphocytes # 1.0 (1.0-4.8) k/uL Monocytes # 0.3 (0-1.0) k/uL Eosinophils # 0.1 (0-0.7) k/uL Basophils # 0.0 (0-0.2) k/uL PT (10.0-12.5) sec INR (<1.2) APTT (22.0-30.0) sec Sodium (137-145) mmol/L Potassium (3.5-5.1) mmol/L Chloride (98-107) mmol/L Carbon Dioxide (22-30) mmol/L Anion Gap mmol/L BUN (7-17) mg/dL Creatinine (0.52-1.04) mg/dL Est GFR (CKD-EPI)AfAm (>60 ml/min/1.73 sqM) Est GFR (CKD-EPI)NonAf (>60 ml/min/1.73 sqM) Glucose (74-99) mg/dL Calcium (8.4-10.2) mg/dL Total Bilirubin (0.2-1.3) mg/dL AST (14-36) U/L ALT (4-34) U/L Alkaline Phosphatase (38-126) U/L Troponin I (0.000-0.034) ng/mL Total Protein (6.3-8.2) g/dL Albumin (3.5-5.0) g/dL Blood Type Blood Type Confirm Blood Type Recheck Bld Type Recheck Status Antibody Screen Spec Expiration Date - Radiology Data Radiology results: report reviewed (CT abdomen and pelvis negative for acute disease), image reviewed Disposition Clinical Impression: Lower gastrointestinal hemorrhage, Abdominal pain Disposition: HOME SELF-CARE Condition: Good Instructions (If sedation given, give patient instructions): Gastrointestinal Bleeding (ED), Abdominal Pain (ED) Is patient prescribed a controlled substance at d/c from ED?: No Referrals: Kevin Waggoner MD [Primary Care Provider] - 1-2 days Time of Disposition: 03:00
[2023-10-07 00:26] LABS: Basophils % (A) 0 %; Eosinophils # (A) 0.1 k/uL (0-0.7); Eosinophils % (A) 3 %; HCT 40.2 % (34.0-46.0); HGB 13.4 gm/dL (11.4-16.0); Lymphocytes # (A) 1.5 k/uL (1.0-4.8); Lymphocytes % (A) 31 %; MCH 29.6 pg (25.0-35.0); MCHC 33.2 g/dL (31.0-37.0); MCV 88.9 fL (80.0-100.0); Mean Platelet Volume 8.4; Monocytes # (A) 0.3 k/uL (0-1.0); Monocytes % (A) 6 %; Neutrophils # (A) 2.7 k/uL (1.3-7.7); Neutrophils % (A) 56 %; Platelet Count 163 k/uL (150-450); RBC 4.53 m/uL (3.80-5.40); RDW 12.7 % (11.5-15.5); WBC 4.8 k/uL (3.8-10.6)
[2023-10-07 00:43] LABS: INR 1.1 (<1.2); Partial Thromboplastin Time 26.7 sec (22.0-30.0); Prothrombin Time 11.7 sec (10.0-12.5)
[2023-10-07 01:34] LABS: ALT 15 U/L (4-34); AST 23 U/L (14-36); African American GFR (CKD) >90 (>60 ml/min/1.73 sqM); Albumin 4.5 g/dL (3.5-5.0); Alkaline Phosphatase 81 U/L (38-126); Anion Gap 13 mmol/L; Blood Urea Nitrogen 5 mg/dL (7-17); Calcium 9.1 mg/dL (8.4-10.2); Carbon Dioxide 26 mmol/L (22-30); Chloride 104 mmol/L (98-107); Glucose 99 mg/dL (74-99); Non-African American GFR(CKD) >90 (>60 ml/min/1.73 sqM); Potassium 3.8 mmol/L (3.5-5.1); Sodium 143 mmol/L (137-145); Total Bilirubin 0.4 mg/dL (0.2-1.3); Total Protein 7.3 g/dL (6.3-8.2)
[2023-10-07] MEDS ORDERED: HYDROmorphone 1 MG/ML 1 ML SYRINGE IVP STA (03:31)
[2023-10-07 04:50] LABS: Basophils % (A) 0 %; Eosinophils # (A) 0.1 k/uL (0-0.7); Eosinophils % (A) 3 %; HCT 35.5 % (34.0-46.0); Lymphocytes % (A) 22 %; MCH 30.3 pg (25.0-35.0); MCV 89.2 fL (80.0-100.0); Mean Platelet Volume 7.8; Monocytes # (A) 0.3 k/uL (0-1.0); Monocytes % (A) 6 %; Neutrophils % (A) 66 %; Platelet Count 140 k/uL (150-450); RBC 3.97 m/uL (3.80-5.40); RDW 12.5 % (11.5-15.5); WBC 4.5 k/uL (3.8-10.6)
[2023-10-07] MEDS ORDERED: KETOROLAC 15 MG/ML 1 ML VIAL IVP STA (05:07)
--- NOTE | 2023-10-07 06:59 | CT ---
EXAMINATION TYPE: CT abdomen pelvis w con CT DLP: 578.6 mGycm, Automated exposure control for dose reduction was used. DATE OF EXAM: 10/07/2023 4:00 AM COMPARISON: Pelvic ultrasound 11/22/2022 CLINICAL INDICATION:Female, 57 years old with history of pain; TECHNIQUE: Standard CT of the abdomen and pelvis following the administration of 100 cc of Isovue 3 00 IV contrast material. Coronal and sagittal reformats were performed. FINDINGS: LOWER CHEST: Unremarkable ABDOMEN LIVER: Unremarkable GALLBLADDER AND BILE DUCTS: Unremarkable. PANCREAS: Unremarkable. SPLEEN: Unremarkable. ADRENAL GLANDS: Unremarkable. KIDNEYS AND URETERS: No evidence of hydronephrosis or renal calculus. The kidneys enhance symmetrical ly. Contrast is demonstrated within both collecting systems on the delayed phase. PELVIS BLADDER: Under distended, limiting evaluation. REPRODUCTIVE: Unremarkable. ABDOMEN & PELVIS STOMACH AND BOWEL: Stomach and duodenum are unremarkable. No focal bowel wall thickening or surroundi ng inflammatory changes. The appendix is within normal limits. The hyperdense material within the col on to suggest active GI bleed. No evidence of bowel obstruction. PERITONEUM: No evidence of pneumoperitoneum or free fluid. VASCULATURE: No evidence of aortic aneurysm. MUSCULOSKELETAL: No acute osseous abnormalities LYMPH NODES: No gross evidence for lymphadenopathy. SOFT TISSUE/ABDOMINAL WALL: Unremarkable IMPRESSION: No acute abdominal/pelvic process.
[2023-10-07 08:48] VITALS: BP 113/77; PULSE 58; RESP 17
== END 2023-10-07 08:32 | disposition home or self-care (01) ==
LOC: EC 21:45
DX: K92.2 Gastrointestinal hemorrhage, unspecified (principal)
CPT/HCPCS: 36415; 86900; 86901; 80053; 84484; 85025; 85610; 85730; 86850; 74177; 99285; 96374; 96375; 96361 ×4; J1885; C9113; Q9967

== ENCOUNTER → 2023-10-06 | Outpatient (CLI) | payer OTHER | END | disposition home or self-care (01) | LOC: LABMAIN 20:12 | PROVIDERS: ATTEND Registered Nurse General Practice | DX: Z53.9 Procedure and treatment not carried out, unspecified reason (principal) ==

== ENCOUNTER → 2023-11-23 | Outpatient (CLI) | payer OTHER ==
--- NOTE | 2023-11-23 11:02 | P.HPOB ---
History of Present Illness H&P Date: 11/23/23 Chief Complaint: The patient is here for her routine gynecologic exam and ma mmogram. This is a 57-year-old G0 with an LMP of 2018. The patient has never been sexually active. She is without gynecologic complaints and denies any postmenopausal bleeding. Review of Systems She has gained about 6 pounds over the past 3 years. She denies respiratory or cardiac problems. GI: She has had some issues with bleeding hemorrhoids. She noticed some blood after bowel movement yesterday. She was seen in the emergency room for bright red bleeding 1-1/2 months ago. She had a negative CT scan of the abdomen and pelvis. She has been seeing Dr. Pan or someone in her office with the bleeding and IBS. Past Medical History Past Medical History: Seizure Disorder Additional Past Medical History / Comment(s): "SLEEP SEIZURES" LAST SEIZURE 1983. 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 She has not been sexually active. History of Any Multi-Drug Resistant Organisms: None Reported Past Surgical History: Breast Surgery Additional Past Surgical History / Comment(s): RT BREAST BX BENIGN. Balloon sinuplasty. Colonoscopy 2021(next after 3yr) Past Anesthesia/Blood Transfusion Reactions: No Reported Reaction Additional Past Anesthesia/Blood Transfusion Reaction / Comment(s): NEVER HAS HAD GENERAL ANESTHESIA Past Psychological History: No Psychological Hx Reported Smoking Status: Never smoker Past Alcohol Use History: None Reported Past Drug Use History: None Reported Additional History: She is single and has never been sexually active. 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 - Past Family History Sister(s) Additional Family Medical History / Comment(s): Osteopenia. Mother Family Medical History: AFIB, Cancer, Dementia Additional Family Medical History / Comment(s): BREAST CA AT AGE 50. 2022. Osteoporosis. Paternal aunt also had breast cancer. Father Family Medical History: Cancer, Renal Disease Additional Family Medical History / Comment(s): PROSTATE CA, lung cancer and colon cancer. . Osteoporosis. Paternal grandmother had OVARIAN CA. Medications and Allergies Home Medications Medication Instructions Recorded Confirmed Type PHENobarbital [Phenobarbital] 64.8 mg PO BID 08/11/15 11/23/23 History Cholecalciferol [Vitamin D3] 1,000 unit PO DAILY 09/21/17 11/23/23 History Glucosam/Robbi-Msm1/C/Abelino/Bosw 1 tab PO DAILY 09/21/17 11/23/23 History [Glucosamine-Chondroitin Tablet] Fluticasone Nasal [place] [Flonase 1 spray EA NOSTRIL DAILY 11/12/20 11/23/23 History Nasal [place]] Montelukast [Singulair] 10 mg PO DAILY 11/12/20 11/23/23 History Ibuprofen [Motrin] 600 mg PO Q8HR PRN #20 tab 09/13/21 11/23/23 Rx Amitriptyline HCl 10 mg PO DAILY 11/23/23 11/23/23 History Ciclopirox 8 % PO DAILY 11/23/23 11/23/23 History Dicyclomine [Bentyl] 10 mg PO DAILY 11/23/23 11/23/23 History Loratadine 10 mg PO DAILY 11/23/23 11/23/23 History miSOPROStoL 100 mcg PO DAILY 11/23/23 11/23/23 History Allergies Allergy/AdvReac Type Severity Reaction Status Date / Time No Known Allergies Allergy Verified 11/23/23 10:02 Exam Intake and Output 11/22/23 11/23/23 11/23/23 22:59 06:59 14:59 Other: Weight 64.41 kg Height 5 feet 8 inches, weight 142 pounds, BMI 21.6. Blood pressure 118/79, temperature 98.1, pulse 60, pulse oximeter 100%. This is a well-developed well-nourished white female who is alert and oriented times 3 in no acute distress. HEENT: Within normal limits. NECK: Supple without mass or thyromegaly. CHEST AND LUNGS: Clear to auscultation. HEART: Regular rate and rhythm. BREASTS: Are without mass or discharge. AXILLARY EXAM: Negative for adenopathy. BACK: Negative for CVA tenderness. ABDOMEN: Soft, nontender, without palpable masses. PELVIC EXAM: Normal external genitalia. Introitus is virginal allowing an extra small speculum or a single index finger for digital exam. Cervix and vagina appear normal with mild atrophy. There is no unusual discharge. There is no evidence of prolapse. The uterus is midposition, nongravid size and nontender. There are no palpable adnexal masses or tenderness. RECTAL EXAM: There is an external hemorrhoid measuring approximately 1 x 1.5 cm. Rectovaginal exam is negative for mass or tenderness. Occult blood testing was not done since the patient states she had some blood associated with a bowel movement her hemorrhoid yesterday. She will continue to follow-up with Dr. Pan's office for the bleeding she has been experiencing. EXTREMITIES: Nontender. IMPRESSION: 1. 57-year-old virginal menopausal female with normal gynecologic exam. 2. Intermittent blood per rectum per the patient. She will continue to follow- up with Dr. Pan's office for this. PLAN: 1. Pap smear was deferred since she had a negative Pap smear cotest on 11/12/2020. 2. Self breast awareness was discussed with the patient. We have also discussed symptoms associated with inflammatory breast cancer. 3. Screening mammogram will be done today. 4. Osteoporosis prevention was discussed. I have stressed the importance of adequate calcium, vitamin D and regular exercise. Recommended amounts of calcium and vitamin D were also discussed. I recommended a bone density test since both parents had osteoporosis. This will be her first. The order slip will be mailed to the patient. 5. The patient will continue to follow up with her GI specialist for the blood per rectum that she has been experiencing. 6. She was advised to return in one year for her annual well woman exam.
[2023-11-23 11:52] VITALS: BP 118/79; PULSE 60; RESP 17; TEMP 98.1
== END ==
LOC: WWCWWP 09:51
PROVIDERS: ATTEND Obstetrics & Gynecology
DX: Z12.31 Encounter for screening mammogram for malignant neoplasm of breast (principal); G40.909 Epilepsy, unspecified, not intractable, without status epilepticus; K62.5 Hemorrhage of anus and rectum; Z78.0 Asymptomatic menopausal state; Z80.3 Family history of malignant neoplasm of breast; Z98.890 Other specified postprocedural states
CPT/HCPCS: 77063; 77067

== ENCOUNTER → 2023-11-25 | Outpatient (CLI) | payer OTHER ==
--- NOTE | 2023-11-27 20:49 | BD ---
EXAMINATION TYPE: Axial Bone Density DATE OF EXAM: 11/25/2023 CLINICAL HISTORY: 57 years old Female. ICD-10 CODE: Z77.80 ASYMPTOMATIC MENOPAUSAL STATE Height: 66.5" Weight: 137.1lbs FRAX RISK QUESTIONS: Alcohol (3 or more units per day): No Family History (Parent hip fracture): No Glucocorticoids (More than 3mos): No (Ex: prednisone, prednisolone, methylprednisolone, dexamethasone, and hydrocortisone). History of Fracture in Adulthood: Yes, toe Secondary Osteoporosis: 1. Type 1 Diabetes: No 2. Hyperthyroidism: No 3. Menopause before 45: No 4. Malnutrition: No 5. Chronic liver disease: No Rheumatoid Arthritis: No Current Tobacco Use: No RISK FACTORS HISTORY OF: Hip Fracture (Right/Left): No Spine Fracture: No History of Wrist Fracture: No Surgery to Spine/Hip(right/left)/Wrist (right/left): No Family History of Osteoporosis: Mother and Father, sister has osteopenia Active: Yes Diet low in dairy products/other sources of calcium: No Postmenopausal woman: Yes Lost more than 2 inches in height since high school: No Frequent falls: No Poor Health: No Hyperparathyroidism: No Adrenal Insufficiency: No MEDICATIONS: Prednisone or other steroids: No Thyroid Medications: No Osteoporosis Medications: No Additional Medications: Acid reflux meds, vitamin D with K Additional History: Hx of skin cancer EXAM MEASUREMENTS: Bone mineral densitometry was performed using the Line[employer] System. Bone mineral density as measured about the Lumbar spine is: ----- L1-L4(G/cm2): 0.878 T Score Values are as follows: ----- L1: -2.7 ----- L2: -2.5 ----- L3: -2.0 ----- L4: -2.9 ----- L1-L4: -2.5 Z Score Values are as follows: ----- L1: -1.6 ----- L2: -1.5 ----- L3: -1.0 ----- L4: -1.9 ----- L1-L4: -1.5 Baseline @MPH Bone mineral density about the R hip (g/cm2): 0.734 Bone mineral density about the L hip (g/cm2): 0.717 T Score values are as follows: -----R Neck: -2.2 -----L Neck: -2.2 -----R Total: -2.2 -----L Total: -2.3 Z Score values are as follows: -----R Neck: -1.1 -----L Neck: -1.1 -----R Total: -1.4 -----L Total: -1.5 Baseline @MPH FRAX%s: The graph provided illustrates a 15.1% chance for a major osteoporotic fx and a 2.6% chance f or the hips probability for fx in 10 years time. IMPRESSION: Osteoporosis (T Score less than -2.5). There is increased fracture risk and therapy is usually indicated based on age. Re-Screen 1-2 years. NOTE: T-SCORE=SD OF THE YOUNG ADULT MEAN.
== END | disposition home or self-care (01) ==
LOC: RADBDWWP 07:16
PROVIDERS: ATTEND Obstetrics & Gynecology
DX: M81.0 Age-related osteoporosis without current pathological fracture (principal); M85.89 Other specified disorders of bone density and structure, multiple sites; Z78.0 Asymptomatic menopausal state
CPT/HCPCS: 77080

== ENCOUNTER → 2023-11-30 | Outpatient (CLI) | payer OTHER ==
--- NOTE | 2023-11-30 14:31 | MM ---
Reason for Exam: Follow-up at short interval from prior study. Last screening mammogram was performed less than 1 month ago. Patient History: Menarche at age 14. Patient has no children. Postmenopausal. 08/12/2015, High risk Core Biopsy on the right side. 07/31/2008, Benign Cyst Aspiration on the left side. 06/21/2007, Benign Cyst Aspiration on the left side. 08/05/2015, MG discontinued stereo core RT on the right side. Paternal aunt had breast cancer, age 60. Mother had breast cancer, age 50. Risk Values: Mindy 5 year model risk: 2.9%. NCI Lifetime model risk: 17.7%. Prior Study Comparison: 11/19/2022 Bilateral MG 3D screening mammo w/cad, [facility]. 11/23/2023 Bilateral MG 3D screening mammo w/cad, [facility]. Tissue Density: Left: The breast tissue is extremely dense which could obscure a lesion on mammography. Findings: Analyzed By CAD. Pattern appears symmetrical. There is a persistent 0.5 cm nodule 6 cm from the nipple. Additional evaluation with ultrasound is recommended. Overall Assessment: Incomplete: need additional imaging evaluation, BI-RAD 0 Management: Diagnostic Breast Ultrasound of the left breast. A negative mammogram report should not preclude additional follow up of suspicious palpable abnormalities. Patient should continue monthly self breast exam. A clinical breast exam by your physician is recommended on an annual basis and results should be correlated with mammographic findings. Electronically signed and approved by: Ruddy Holbrook D.O. Radiologis
--- NOTE | 2023-12-01 10:44 | USB ---
Reason for Exam: Additional evaluation requested from prior study. Patient History: Menarche at age 14. Patient has no children. Postmenopausal. 08/12/2015, High risk Core Biopsy on the right side. 07/31/2008, Benign Cyst Aspiration on the left side. 06/21/2007, Benign Cyst Aspiration on the left side. 08/05/2015, MG discontinued stereo core RT on the right side. Paternal aunt had breast cancer, age 60. Mother had breast cancer, age 50. Risk Values: Mindy 5 year model risk: 2.9%. NCI Lifetime model risk: 17.7%. Technique: Method: Targeted. Prior Study Comparison: 11/18/2021 Bilateral Screening Mammogram, [facility]. 11/19/2022 Bilateral MG 3D screening mammo w/cad, [facility]. 11/23/2023 Bilateral MG 3D screening mammo w/cad, [facility]. Findings: The upper outer quadrant of the left breast, the axilla of the left breast and the retroareolar of the left breast were scanned. There are multiple small cystlike areas scattered through the left upper outer quadrant. No suspicious solid masses. Axillary region appears unremarkable. The 12:00 lesion measuring 0.4 cm x 0.4 x 0.2 cm by centimeters from nipple likely correlates with the nodularity identified on mammogram. Overall Assessment: Probably benign, BI-RAD 3 Management: Diagnostic Mammogram of the left breast in 6 months. A clinical breast exam by your physician is recommended on an annual basis and results should be correlated with mammographic findings. This exam should not preclude additional follow-up of suspicious palpable abnormalities. Results were given to the patient verbally at the time of exam. Electronically signed and approved by: Ruddy Holbrook D.O. Radiologis
== END | disposition home or self-care (01) ==
LOC: RADMAMWWP 13:59
PROVIDERS: ATTEND Family Medicine
DX: R92.342 Mammographic extreme density, left breast (principal); Z80.3 Family history of malignant neoplasm of breast; Z78.0 Asymptomatic menopausal state
CPT/HCPCS: 77065; 76642; G0279; 77061

== ENCOUNTER 2024-04-26 21:44 | Emergency (ER) | payer OTHER ==
[2024-04-26 22:36] VITALS: RESP 18; TEMP 97.9
--- NOTE | 2024-04-26 23:33 | ED ---
General Adult HPI - General Chief complaint: ENT Stated complaint: object in throat Time Seen by Provider: 04/26/24 22:25 Source: patient, RN notes reviewed Mode of arrival: ambulatory Limitations: no limitations - History of Present Illness Initial comments: 58-year-old female presents to the emergency department for evaluation of foreign body sensation in her throat. Patient states that she took her pills around 9 PM today all at once and following this, started experiencing foreign body sensation in her throat. She states that she took around 8 pills at once. She states that she attempted to put her finger down her throat and states that she gagged. She reports that around 2 pills came up but she continues to have the sensation. She has not had anything to drink following this. Denies any difficulty breathing, vomiting. - Related Data Home Medications Medication Instructions Recorded Confirmed PHENobarbital [Phenobarbital] 64.8 mg PO BID 08/11/15 11/23/23 Cholecalciferol [Vitamin D3] 1,000 unit PO DAILY 09/21/17 11/23/23 Glucosam/Robbi-Msm1/C/Abelino/Bosw 1 tab PO DAILY 09/21/17 11/23/23 [Glucosamine-Chondroitin Tablet] Fluticasone Nasal [place] [Flonase 1 spray EA NOSTRIL DAILY 11/12/20 11/23/23 Nasal [place]] Montelukast [Singulair] 10 mg PO DAILY 11/12/20 11/23/23 Amitriptyline HCl 10 mg PO DAILY 11/23/23 11/23/23 Ciclopirox 8 % PO DAILY 11/23/23 11/23/23 Dicyclomine [Bentyl] 10 mg PO DAILY 11/23/23 11/23/23 Loratadine 10 mg PO DAILY 11/23/23 11/23/23 miSOPROStoL 100 mcg PO DAILY 11/23/23 11/23/23 Previous Rx's Medication Instructions Recorded Ibuprofen [Motrin] 600 mg PO Q8HR PRN #20 tab 09/13/21 Allergies Allergy/AdvReac Type Severity Reaction Status Date / Time No Known Allergies Allergy Verified 04/26/24 21:49 Review of Systems ROS Statement: Those systems with pertinent positive or pertinent negative responses have been documented in the HPI. ROS Other: All systems not noted in ROS Statement are negative. Past Medical History Past Medical History: Seizure Disorder Additional Past Medical History / Comment(s): "SLEEP SEIZURES" LAST SEIZURE 1983. 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 She has not been sexually active. History of Any Multi-Drug Resistant Organisms: None Reported Past Surgical History: Breast Surgery Additional Past Surgical History / Comment(s): RT BREAST BX BENIGN. Balloon sinuplasty. Colonoscopy 2021(next after 3yr) Past Anesthesia/Blood Transfusion Reactions: No Reported Reaction Additional Past Anesthesia/Blood Transfusion Reaction / Comment(s): NEVER HAS HARDIN D GENERAL ANESTHESIA Past Psychological History: No Psychological Hx Reported Smoking Status: Never smoker Past Alcohol Use History: None Reported Past Drug Use History: None Reported - Past Family History Sister(s) Additional Family Medical History / Comment(s): Osteopenia. Mother Family Medical History: AFIB, Cancer, Dementia Additional Family Medical History / Comment(s): BREAST CA AT AGE 50. 2022. Osteoporosis. Paternal aunt also had breast cancer. Father Family Medical History: Cancer, Renal Disease Additional Family Medical History / Comment(s): PROSTATE CA, lung cancer and colon cancer. . Osteoporosis. Paternal grandmother had OVARIAN CA. General Exam Limitations: no limitations General appearance: alert, in no apparent distress Head exam: Present: atraumatic, normocephalic, normal inspection Course Vital Signs 04/26/24 04/26/24 21:47 23:47 Temperature 97.9 F Pulse Rate 75 70 Respiratory 18 18 Rate Blood Pressure 142/82 109/65 O2 Sat by Pulse 100 100 Oximetry Medical Decision Making - Medical Decision Making Was pt. sent in by a medical professional or institution (, PA, TRAILER DRIVER, urgent care, hospital, or assisted...) When possible be specific @ -No Did you speak to anyone other than the patient for history (EMS, parent, family, police, friend...)? What history was obtained from this source @ -No Did you review nursing and triage notes (agree or disagree)? Why? @ -I reviewed and agree with nursing and triage notes Were old charts reviewed (outside hosp., previous admission, EMS record, old EKG, old radiological studies, urgent care reports/EKG's, assisted records)? Report findings @ -No old charts were reviewed Differential Diagnosis (chest pain, altered mental status, abdominal pain women, abdominal pain men, vaginal bleeding, weakness, fever, dyspnea, syncope, headache, dizziness, GI bleed, back pain, seizure, CVA, palpatations, mental health, musculoskeletal)? @ -Not applicable EKG interpreted by me (3pts min.). @ -None X-rays interpreted by me (1pt min.). @ -None done CT interpreted by me (1pt min.). @ -None done U/S interpreted by me (1pt. min.). @ -None done What testing was considered but not performed or refused? (CT, X-rays, U/S, labs)? Why? @ -None What meds were considered but not given or refused? Why? @ -None Did you discuss the management of the patient with other professionals (professionals i.e. , PA, TRAILER DRIVER, lab, RT, psych nurse, social media campaign manager, automation and controls instructor, teacher, employment officer, heel caser)? Give summary @ -No Was smoking cessation discussed for >3mins.? @ -No Was critical care preformed (if so, how long)? @ -No Were there social determinants of health that impacted care today? How? (Homelessness, low income, unemployed, alcoholism, drug addiction, transportation, low edu. Level, literacy, decrease access to med. care, alf, rehab)? @ -No Was there de-escalation of care discussed even if they declined (Discuss DNR or withdrawal of care, Hospice)? DNR status @ -No What co-morbidities impacted this encounter? (DM, HTN, Smoking, COPD, CAD, Cancer, CVA, ARF, Chemo, Hep., AIDS, mental health diagnosis, sleep apnea, morbid obesity)? @ -None Was patient admitted / discharged? Hospital course, mention meds given and route, prescriptions, significant lab abnormalities, going to OR and other pert inent info. @ -Discharge. Patient presented to the emergency department for evaluation of sensation of pill stuck in her throat. She reports that she took many pills at once. Patient given a carbonated beverage in the emergency department. She states that following that she feels that the pills have moved down. Foreign body sensation has improved. Patient advised to continue fluids. Patient will be discharged home as symptoms have improved. She is understanding agreeable with this plan. Patient stable at time of discharge. Case discussed with Dr. Galan Undiagnosed new problem with uncertain prognosis? @ -No Drug Therapy requiring intensive monitoring for toxicity (Heparin, Nitro, Insulin, Cardizem)? @ -No Were any procedures done? @ -No Diagnosis/symptom? @ -Esophageal foreign body Acute, or Chronic, or Acute on Chronic? @ -Acute Uncomplicated (without systemic symptoms) or Complicated (systemic symptoms)? @ -Uncomplicated Side effects of treatment? @ -No Exacerbation, Progression, or Severe Exacerbation? @ -No Poses a threat to life or bodily function? How? (Chest pain, [place], CA, pneumonia, PE, COPD, DKA, ARF, appy, cholecystitis, CVA, Diverticulitis, Homicidal, Suicidal, threat to staff... and all critical care pts) @ -No Disposition Clinical Impression: Esophageal foreign body Disposition: HOME SELF-CARE Condition: Stable Instructions (If sedation given, give patient instructions): Esophageal Foreign Body (ED) Additional Instructions: Please take pills separately. Follow up with your primary care provider. Return to the emergency department for new or worsening symptoms. Is patient prescribed a controlled substance at d/c from ED?: No Referrals: Kevin Waggoner MD [Primary Care Provider] - 1-2 days
[2024-04-27 00:08] VITALS: BP 109/65; PULSE 70
== END 2024-04-26 23:47 | disposition home or self-care (01) ==
LOC: EC 21:44
DX: T18.108A Unspecified foreign body in esophagus causing other injury, initial encounter (principal)
CPT/HCPCS: 99282

== ENCOUNTER → 2024-05-23 | Outpatient (CLI) | payer OTHER ==
--- NOTE | 2024-05-23 08:57 | MM ---
Reason for Exam: Follow-up at short interval from prior study. Last screening mammogram was performed 6 month(s) ago. Patient History: Menarche at age 14. Patient has no children. Postmenopausal. 08/12/2015, High risk Core Biopsy on the right side. 07/31/2008, Benign Cyst Aspiration on the left side. 06/21/2007, Benign Cyst Aspiration on the left side. 08/05/2015, MG discontinued stereo core RT on the right side. Paternal aunt had breast cancer, age 60. Mother had breast cancer, age 50. Risk Values: Mindy 5 year model risk: 3.0%. NCI Lifetime model risk: 17.3%. Prior Study Comparison: 07/28/2018 Bilateral Screening Mammogram, [facility]. 10/18/2019 Bilateral Screening Mammogram, [facility]. 11/12/2020 Bilateral Screening Mammogram, [facility]. 11/18/2021 Bilateral Screening Mammogram, [facility]. 11/19/2022 Bilateral MG 3D screening mammo w/cad, [facility]. 11/23/2023 Bilateral MG 3D screening mammo w/cad, [facility]. 11/30/2023 Left MG 3D work up w/cad [place], [facility]. Tissue Density: Left: The breasts are extremely dense, which lowers the sensitivity of mammography. Findings: Analyzed By CAD. The nodularity upper outer left breast. Microclip marker left breast. No suspicious calcifications. Ultrasound is advised. Overall Assessment: Incomplete: need additional imaging evaluation, BI-RAD 0 Management: Diagnostic Breast Ultrasound of the left breast. . Results were given to the patient verbally at the time of exam. Patient should continue monthly self-breast exams. A clinical breast exam by your physician is recommended on an annual basis. This exam should not preclude additional follow-up of suspicious palpable abnormalities. Note on Mindy scores and lifetime risk: 1. A Mindy score greater than 3% is considered moderate risk. If this is the case, consider specialist referral to assess eligibility for a risk reducing agent. 2. If overall lifetime risk for the development of breast cancer is 20% or higher, the patient may qualify for future screening with alternating mammogram and breast MRI. Electronically signed and approved by: Sajan Barragan M.D. Radiologis
--- NOTE | 2024-05-23 09:26 | USB ---
Reason for Exam: Follow-up at short interval from prior study. Patient History: Menarche at age 14. Patient has no children. Postmenopausal. 08/12/2015, High risk Core Biopsy on the right side. 07/31/2008, Benign Cyst Aspiration on the left side. 06/21/2007, Benign Cyst Aspiration on the left side. 08/05/2015, MG discontinued stereo core RT on the right side. Paternal aunt had breast cancer, age 60. Mother had breast cancer, age 50. Risk Values: Mindy 5 year model risk: 3.0%. NCI Lifetime model risk: 17.3%. Technique: Method: Targeted. Doppler: Color. Patient Position: Supine. Prior Study Comparison: 11/19/2022 Bilateral MG 3D screening mammo w/cad, [facility]. 11/23/2023 Bilateral MG 3D screening mammo w/cad, [facility]. 11/30/2023 Left MG 3D work up w/cad [facility], [facility]. 11/30/2023 Left US breast workup limited , [facility]. Findings: The upper outer quadrant of the left breast, the axilla of the left breast and the retroareolar of the left breast were scanned. Small cysts continue to persist without significant change measuring up to approximately 4 mm.. Microclip marker seen within one of the cystic lesions compatible with prior tissue sampling. There is a mildly prominent left axillary lymph node measuring 1.6 x 0.9 cm the cortical thickness of approximately 28 mm. Follow-up is recommended. Overall Assessment: Probably benign, BI-RAD 3 Management: Diagnostic Breast Ultrasound of the left breast. A clinical breast exam by your physician is recommended on an annual basis and results should be correlated with mammographic findings. This exam should not preclude additional follow-up of suspicious palpable abnormalities. Results were given to the patient verbally at the time of exam. Electronically signed and approved by: Sajan Barragan M.D. Radiologis
== END | disposition home or self-care (01) ==
LOC: RADMAMWWP 08:22
PROVIDERS: ATTEND Obstetrics & Gynecology
DX: Z12.31 Encounter for screening mammogram for malignant neoplasm of breast (principal); R92.8 Other abnormal and inconclusive findings on diagnostic imaging of breast; R92.30 Dense breasts, unspecified; Z78.0 Asymptomatic menopausal state; Z80.3 Family history of malignant neoplasm of breast
CPT/HCPCS: 77065; 76642; G0279; 77061

== ENCOUNTER → 2024-12-04 | Outpatient (CLI) | payer OTHER ==
[2024-12-04 13:20] VITALS: BP 120/81; PULSE 64; RESP 17; TEMP 98.3
--- NOTE | 2024-12-04 13:26 | P.HPOB ---
History of Present Illness H&P Date: 12/04/24 Chief Complaint: The patient is here for her routine gynecologic exam and ma mmogram. This is a 58-year-old G0 with an LMP of 2018. The patient has never been sexually active in her lifetime. She is without gynecologic complaints and denies any postmenopausal bleeding. She did have a screening mammogram last year which did require a left breast workup. A 6-month a left breast ultrasound was also done which was probably benign. She is due for bilateral diagnostic mammogram with left breast ultrasound. Review of Systems The patient's weight has been stable over the past year. She denies respiratory, cardiac, or G.I. problems. Past Medical History Past Medical History: Seizure Disorder Additional Past Medical History / Comment(s): "SLEEP SEIZURES" LAST SEIZURE 1983. 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 She has not been sexually active. 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 Balloon sinuplasty. Left leg lipoma removed. Colonoscopy 2021(next after 3yr) Past Anesthesia/Blood Transfusion Reactions: No Reported Reaction Additional Past Anesthesia/Blood Transfusion Reaction / Comment(s): NEVER HAS HAD GENERAL ANESTHESIA Past Psychological History: No Psychological Hx Reported Smoking Status: Never smoker Past Alcohol Use History: None Reported Past Drug Use History: None Reported Additional History: She is single and has never been sexually active. 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 - Past Family History Sister(s) Additional Family Medical History / Comment(s): Osteopenia. Mother Family Medical History: AFIB, Cancer, Dementia Additional Family Medical History / Comment(s): BREAST CA AT AGE 50. 2022. Osteoporosis. Paternal aunt also had breast cancer. Father Family Medical History: Cancer, Renal Disease Additional Family Medical History / Comment(s): PROSTATE CA, lung cancer and colon cancer. . Osteoporosis. Paternal grandmother had OVARIAN CA. Medications and Allergies Home Medications Medication Instructions Recorded Confirmed Type PHENobarbital [Phenobarbital] 64.8 mg PO BID 08/11/15 11/23/23 History Cholecalciferol [Vitamin D3] 1,000 unit PO DAILY 09/21/17 11/23/23 History Glucosam/Robbi-Msm1/C/Abelino/Bosw 1 tab PO DAILY 09/21/17 11/23/23 History [Glucosamine-Chondroitin Tablet] Fluticasone Nasal [place] [Flonase 1 spray EA NOSTRIL DAILY 11/12/20 11/23/23 History Nasal [place]] Montelukast [Singulair] 10 mg PO DAILY 11/12/20 11/23/23 History Ibuprofen [Motrin] 600 mg PO Q8HR PRN #20 tab 09/13/21 11/23/23 Rx Amitriptyline HCl 10 mg PO DAILY 11/23/23 11/23/23 History Dicyclomine [Bentyl] 10 mg PO DAILY 11/23/23 11/23/23 History Loratadine 10 mg PO DAILY 11/23/23 11/23/23 History miSOPROStoL 100 mcg PO DAILY 11/23/23 11/23/23 History Allergies Allergy/AdvReac Type Severity Reaction Status Date / Time No Known Allergies Allergy Verified 12/04/24 13:17 Exam Blood pressure 120/81, height 5 feet 8 inches, weight 141 pounds, temperature 98.3, pulse 64, pulse oximeter 99%. BMI 21.4 This is a well-developed well-nourished right female who is alert and oriented times 3 in no acute distress. HEENT: Within normal limits. NECK: Supple without mass or thyromegaly. CHEST AND LUNGS: Clear to auscultation. HEART: Regular rate and rhythm. BREASTS: Are without mass or discharge. AXILLARY EXAM: Negative for adenopathy. BACK: Negative for CVA tenderness. ABDOMEN: Soft, nontender, without palpable masses. PELVIC EXAM: Normal external genitalia with mild atrophy. Cervix and vagina appear normal with mild atrophy. There is no unusual discharge. There is no evidence of prolapse. The uterus is midposition, nongravid size and nontender. There are no palpable adnexal masses or tenderness. RECTAL EXAM: Rectovaginal exam is negative for mass or tenderness and is negative for occult blood. EXTREMITIES: Nontender. IMPRESSION: 1. 58-year-old virginal female who is menopausal, with normal gynecologic exam. 2. History of osteoporosis. PLAN: 1. Pap smear cotest was performed. 2. Self breast awareness was discussed with the patient. We have also discussed symptoms associated with inflammatory breast cancer. 3. Bilateral diagnostic mammogram with left breast ultrasound will be done today because of her previous abnormal mammogram. 4. Osteoporosis management was discussed. I have stressed the importance of adequate calcium, vitamin D and regular exercise. Recommended amounts of calcium and vitamin D were also discussed. After long discussion she would now would like to start Fosamax. We have discussed possible increased risk for esophageal ulceration and osteonecrosis of the jaw. Instructions on taking the medication were given to the patient. She was also advised not to take the medication if she has upcoming jaw or extensive dental surgery planned. All of her questions were answered. Information on Fosamax and osteoporosis were given to the patient. She was also given a lab slip for a serum creatinine and serum calcium. If the blood tests are normal, she will get be given a prescription for Fosamax 70 mg p.o. weekly. 5. She states she is due for a colonoscopy and she will be scheduling it this year. 6. She was advised to return in one year for her annual well woman exam.
--- NOTE | 2024-12-04 13:49 | MM ---
Reason for Exam: Additional evaluation requested from prior study. Last mammogram was performed 1 year(s) and 1 month(s) ago. Patient History: Menarche at age 14. Patient has no children. Postmenopausal. 08/12/2015, High risk Core Biopsy on the right side. 07/31/2008, Benign Cyst Aspiration on the left side. 06/21/2007, Benign Cyst Aspiration on the left side. 08/05/2015, MG discontinued stereo core RT on the right side. Paternal aunt had breast cancer, age 60. Mother had breast cancer, age 50. Risk Values: Mindy 5 year model risk: 3.0%. NCI Lifetime model risk: 17.3%. Prior Study Comparison: 10/18/2019 Bilateral Screening Mammogram, [facility]. 11/23/2023 Bilateral MG 3D screening mammo w/cad, [facility]. 11/30/2023 Left US breast workup limited LT, [facility]. 05/23/2024 Left US breast limited LT, [facility]. 05/23/2024 Left MG 3D diag mammo w/cad LT, [facility]. Tissue Density: The breasts are heterogeneously dense, which may obscure small masses. Findings: Analyzed By CAD. Stable left superior intramammary lymph node. Left breast surgical clip present. No new suspicious masses, calcifications or distortions. Overall Assessment: Benign, BI-RAD 2 Management: Screening Mammogram of the left breast in 1 year. Results were given to the patient verbally at the time of exam. Patient should continue monthly self-breast exams. A clinical breast exam by your physician is recommended on an annual basis. This exam should not preclude additional follow-up of suspicious palpable abnormalities. Note on Mindy scores and lifetime risk: 1. A Mindy score greater than 3% is considered moderate risk. If this is the case, consider specialist referral to assess eligibility for a risk reducing agent. 2. If overall lifetime risk for the development of breast cancer is 20% or higher, the patient may qualify for future screening with alternating mammogram and breast MRI. [facility], , 12/04/2024 1:46 PM. Electronically signed and approved by: Tommy Cruz DO
--- NOTE | 2024-12-04 14:38 | USB ---
Reason for Exam: Follow-up at short interval from prior study. Patient History: Menarche at age 14. Patient has no children. Postmenopausal. 08/12/2015, High risk Core Biopsy on the right side. 07/31/2008, Benign Cyst Aspiration on the left side. 06/21/2007, Benign Cyst Aspiration on the left side. 08/05/2015, MG discontinued stereo core RT on the right side. Paternal aunt had breast cancer, age 60. Mother had breast cancer, age 50. Risk Values: Mindy 5 year model risk: 3.0%. NCI Lifetime model risk: 17.3%. Technique: Method: Targeted. Prior Study Comparison: 11/23/2023 Bilateral MG 3D screening mammo w/cad, [facility]. 11/30/2023 Left MG 3D work up w/cad [facility], [facility]. 05/23/2024 Left MG 3D diag mammo w/cad LT, [facility]. Findings: The upper outer quadrant of the left breast, the axilla of the left breast and the retroareolar of the left breast were scanned. Technique utilized:US breast limited LT Image; Ultrasound imaging of: Area of concern, retroareolar region and axilla. No evidence for organizing fluid collection or mass. Overall Assessment: Benign, BI-RAD 2 Management: Screening Mammogram of both breasts in 1 year. A clinical breast exam by your physician is recommended on an annual basis and results should be correlated with mammographic findings. This exam should not preclude additional follow-up of suspicious palpable abnormalities. Results were given to the patient verbally at the time of exam. [facility], , 12/04/2024 2:35 PM. Electronically signed and approved by: Tommy Cruz DO
[2024-12-04 15:46] LABS: African American GFR (CKD) >90 (>60 ml/min/1.73 sqM); Calcium 9.6 mg/dL (8.4-10.2); Non-African American GFR(CKD) >90 (>60 ml/min/1.73 sqM)
== END ==
LOC: WWCWWP 12:03
PROVIDERS: ATTEND Obstetrics & Gynecology
DX: Z01.419 Encounter for gynecological examination (general) (routine) without abnormal findings (principal); Z80.3 Family history of malignant neoplasm of breast; Z82.62 Family history of osteoporosis; Z12.31 Encounter for screening mammogram for malignant neoplasm of breast
CPT/HCPCS: 82310; 82565; 77066; 76642; G0279; 77062

== ENCOUNTER 2024-12-21 06:05 | Day surgery (SDC) | payer OTHER ==
[2024-12-19 10:28] VITALS: BMI 20.5
[2024-12-21 06:40] VITALS: TEMP 97.2
[2024-12-21] MEDS: IV FLUID CONTINUATION 1,000 ML IV ONE (06:45)
[2024-12-21] MEDS: LACTATED RINGERS 1,000 ML IV SCH (06:47)
[2024-12-21] MEDS ORDERED: LIDOCAINE 1% INJ 10MG/ML (20 ML MDV) ONE (07:04)
[2024-12-21] MEDS ORDERED: PROPOFOL 10 MG/ML 20 ML VIAL IV ONE (07:04)
[2024-12-21] MEDS: LACTATED RINGERS 1,000 ML IV ONE ×2 (07:08→07:25)
--- NOTE | 2024-12-21 07:26 | P.PCN ---
Date of Procedure: 12/21/24 Procedure(s) Performed: Brief history: Patient is a pleasant 59-year-old white female scheduled for an elective upper endoscopy as well as colonoscopy as a part of evaluation of GERD/screening for history of colon polyps and family history of colon cancer. Her father was diagnosed with colon cancer at age 60. Her last colonoscopy was 3 years ago and was noted tubular adenoma. Procedure performed: Esophagogastroduodenoscopy with biopsy Colonoscopy with snare polypectomy Preoperative diagnosis: GERD History of colon polyps/adenoma and family history of colon cancer Anesthesia: MAC Procedure: After informed consent was obtained from the patient was brought into the endoscopy unit and IV sedation was administered by anesthesia under continuous monitoring. Initially upper endoscopy was done. The Olympus GF 160 video endoscope was inserted inserted into the mouth and esophagus intubated without any difficulty and was gradually advanced into the stomach and duodenum and carefully examined. The bulb and second part of the duodenum appeared normal. The scope was then withdrawn into the stomach adequately insufflated with air and upon careful examination the antrum and body, cardia and fundus appeared normal. The scope was then withdrawn into the esophagus. The GE junction was located at 40 cm to the incisors. It appeared regular with no erythema erosions or ulcerations. Rest of the esophagus appeared normal. Patient tolerated the procedure well. At this time the patient continued to remain sedation. Initial digital rectal examination was normal. Olympus CF 160 video colonoscope was then inserted into the rectum and gradually advanced to the cecum without any difficulty. Careful examination was performed as the scope was gradually being withdrawn. The prep was excellent. The cecum, ascending colon, transverse colon, appeared normal. The descending colon there was an 8 mm sessile polyp removed by cold snare polypectomy. Rest descending colon, sigmoid colon and rectum appeared normal. Retroflexion was performed in the rectum and no lesions were noted. Patient tolerated the procedure well. Impression: 1. Upper endoscopy revealed mild antral gastritis but no evidence of esophagitis or esophageal stricture 2. Colonoscopy revealed 8 mm descending colon polyp status post cold snare polypectomy and the rest of the colon appeared normal Recommendations: Findings of this examination were discussed with the patient as well as her family. She was advised to follow-up with the biopsy results. Continue current medications and follow antireflux measures. Recommend repeat colonoscopy in 5 years because of the family history of colon cancer
[2024-12-21 07:50] VITALS: BP 117/75; PULSE 68; RESP 18
== END 2024-12-21 08:32 | disposition home or self-care (01) ==
LOC: ORWHC2ENDO 06:05
PROVIDERS: ATTEND Internal Medicine Gastroenterology
DX: K21.9 Gastro-esophageal reflux disease without esophagitis (principal); K29.50 Unspecified chronic gastritis without bleeding; K20.90 Esophagitis, unspecified without bleeding; D12.4 Benign neoplasm of descending colon; Z86.0101 Personal history of adenomatous and serrated colon polyps; Z80.0 Family history of malignant neoplasm of digestive organs
CPT/HCPCS: 45385; 43239; J2003; J2704; 88305